=== PATIENT | male | born 1995 | race Caucasian/White ===

== ENCOUNTER 2022-08-02 12:22 | Inpatient (IN) | payer OTHER, MEDICAID, SELFPAY ==
--- NOTE | ~2022-08-02 | CT_ITS ---
EXAMINATION: CT HEAD WITHOUT CONTRAST CLINICAL INFORMATION: Possible head injury, seizure. COMPARISON: None TECHNIQUE: Contiguous axial imaging was performed from the skull base to vertex without intravenous administration of contrast. Coronal and sagittal reformatted images were obtained. This CT examination was performed using dose optimization techniques as appropriate, variously including the following: *Automated exposure control *Adjustment of mA and/or kV according to patient size (this includes techniques or standardized protocols for targeted exams where dose is matched to indication/reason for exam; i.e. extremities or head) *Use of iterative reconstruction technique DLP: 783 mGy-cm FINDINGS: The cortical sulci are normal. The lateral ventricles are symmetrical. The third and fourth ventricles are in their normal midline position. The basilar and prepontine cisterns are unremarkable. There is no acute intra or extracerebral abnormality. There is no mass effect or midline shift. Sections through the bony calvarium are unremarkable. The paranasal sinuses moderate right and mild left mucosal thickening is seen in the visualized maxillary sinuses. Mild ethmoid sinus mucosal thickening bilaterally. Right caesar bullosa. The bony orbits and orbital contents are unremarkable. CT/CT head/brain wo IV con IMPRESSION: 1. No acute intracranial pathology. 2. Paranasal sinus inflammatory changes.
--- NOTE | ~2022-08-02 | CT_ITS ---
EXAMINATION: CT ABDOMEN AND PELVIS WITHOUT CONTRAST CLINICAL INFORMATION: Distended abdomen. COMPARISON: None TECHNIQUE: Multidetector volumetric imaging was performed from the superior aspect of the liver through the pubic symphysis. Sagittal and coronal reformatted images were obtained on the technologist's workstation. This CT examination was performed using dose optimization techniques as appropriate, variously including the following: *Automated exposure control *Adjustment of mA and/or kV according to patient size (this includes techniques or standardized protocols for targeted exams where dose is matched to indication/reason for exam; i.e. extremities or head) *Use of iterative reconstruction technique DLP: 1497 mGy-cm FINDINGS: LUNG BASES: Bibasilar dependent airspace disease. No gross effusion, although evaluation is somewhat limited by beam hardening artifact. Mild cardiomegaly. Tip of endotracheal tube within the trachea, approximately 1.1 cm above the barbie. LIVER, GALLBLADDER, AND BILIARY TREE: Hepatomegaly measuring up to approximately 23 cm in craniocaudal dimension. Diffusely heterogeneous hepatic parenchymal density. No direct visualization of portal venous or hepatic venous occlusion. No biliary ductal dilatation is appreciated. Unremarkable appearance of the gallbladder. PANCREAS: Mild induration of fat about the uncinate process and head of the pancreas. No discrete collection identified. SPLEEN: Splenomegaly measuring up to approximately 16.5 cm in sagittal dimension. No focal splenic lesion identified. ADRENAL GLANDS: Unremarkable KIDNEYS AND URETERS: The kidneys appear unremarkable in size, shape, and attenuation. No hydronephrosis, hydroureter, or calculi seen. BLADDER: Tip of catheter within urinary bladder which is poorly distended, therefore suboptimally evaluated. GASTROINTESTINAL TRACT: Tip of feeding tube in the second portion of duodenum. Question subtle submucosal infiltration of fat involving the ascending colon, raising the possibility of burnt out colitis. No diverticulosis. Normal-appearing distal ileum and vermiform appendix. Peroneal cavity: No evidence of ascites. ABDOMINAL WALL: No significant hernia is appreciated. LYMPH NODES: No evidence of adenopathy by size criteria. VASCULAR: Unremarkable PELVIC VISCERA: Unremarkable OSSEOUS STRUCTURES: Unremarkable CT/CT abdomen pelvis wo IV con IMPRESSION: No evidence of ascites or intestinal obstruction. Mild induration of fat about the uncinate process and head of the pancreas, suspicious for acute pancreatitis. No discrete collection identified. Bibasilar dependent airspace disease suggesting infiltrates and/or atelectasis. Hepatosplenomegaly. Diffusely heterogeneous hepatic parenchymal density, nonspecific. Differential diagnosis includes, but isn't limited to, hepatitis. Recommend clinical correlation. If further imaging is clinically desired, MRI may be of use. Additional findings, as above.
--- NOTE | ~2022-08-02 | XR_ITS ---
EXAMINATION: XR CHEST CLINICAL INFORMATION: Hypoxia COMPARISON: August 04, 2022 TECHNIQUE: AP portable view of the chest was obtained. FINDINGS: Endotracheal tube tip lies approximately 1.5 cm above the barbie. Enteric catheter seen traversing through the stomach. Temperature probe in place. The cardiopericardial silhouette is upper limits of normal in size. No evidence of pulmonary edema. No pneumothorax or pleural effusion is appreciated. There are small lung volumes. There appears to be an increase in retrocardiac left lower lobe disease from previous study. XR/XR chest 1V IMPRESSION: Endotracheal tube tip somewhat low approximately 1.5 cm above the barbie. Increase in left lower lobe retrocardiac disease. This critical result was discussed with Dr. Jurado at 8:30 AM on August 05, 2022 and it was ascertained that the content and urgency of the report was understood at the time of direct communication.
--- NOTE | ~2022-08-02 | XR_ITS ---
EXAMINATION: XR CHEST CLINICAL INFORMATION: Line placement COMPARISON: None TECHNIQUE: AP portable view of the chest was obtained. FINDINGS: Endotracheal tube tip lies approximately 2 cm above the barbie. Enteric catheter seen traversing to the stomach. No pneumothorax or pleural effusion identified. The cardiopericardial silhouette is mildly enlarged. No evidence of pulmonary edema. There appears to be some left base atelectasis within the lingula. Lung volumes are small. XR/XR chest 1V IMPRESSION: Support tubes and catheters in place. Cardiomegaly without pulmonary edema.
--- NOTE | ~2022-08-02 | US_ITS ---
EXAMINATION: US ABDOMEN COMPLETE CLINICAL INFORMATION: EtOH hepatitis. COMPARISON: None TECHNIQUE: Real-time imaging of the abdominal viscera. FINDINGS: PANCREAS: Visualized portions unremarkable. ABDOMINAL AORTA: Visualized portions unremarkable. INFERIOR VENA CAVA: Visualized portions unremarkable. LIVER: Diffuse increased hepatic echotexture with heterogeneity and mild surface nodularity. No focal abnormality. Main portal vein is patent. GALLBLADDER: Small gallstone measuring 0.8 cm. No mural thickening or pericholecystic fluid. COMMON BILE DUCT: Normal in caliber measuring 0.6 cm in diameter. RIGHT KIDNEY: 10.8 cm. Unremarkable. LEFT KIDNEY: 12.2 cm. Unremarkable. SPLEEN: 13.6 cm without focal abnormality. FREE FLUID: None. US/US abdomen complete IMPRESSION: Hepatic steatosis and possible cirrhosis without focal abnormality. Cholelithiasis without evidence for acute cholecystitis.
[2022-08-02 12:31] VITALS: PULSE 130; O2SAT 93
[2022-08-02 13:07] VITALS: BP 142/90; PULSE 118; RESP 18; TEMP 37; O2SAT 92; BMI 34.0
--- NOTE | 2022-08-02 13:54 | ECG_ITS ---
Test Reason : SEIZURE Blood Pressure : / mmHG Vent. Rate : 105 BPM Atrial Rate : 105 BPM P-R Int : 146 ms QRS Dur : 094 ms QT Int : 340 ms P-R-T Axes : 067 072 016 degrees QTc Int : 449 ms Sinus tachycardia Otherwise normal ECG No previous ECGs available Referred By: Basilio Gonzalez Electronically Signed By:Mark Mckeon
--- NOTE | 2022-08-02 14:02 | ED.SEIZURE ---
HPI - Seizure General Chief Complaint: Seizure Stated Complaint: ETOH WITHDRAL,SZ, POST ICTAL PER EMS Time Seen by Provider: 08/02/22 13:41 Source: patient Mode of arrival: wheelchair Limitations: no limitations History of Present Illness HPI Narrative: 26-year-old male with history of alcohol abuse currently at [facility] presents with what appears to be an alcohol withdrawal seizure. Patient's last drink was approximately 3 days ago. He drinks about 21 nips per day typically. He denies any other drug abuse. He has been on Librium at all to this to. Today he suffered a seizure. He is not sure if he hit his head. He did bite his tongue. Did not lose control of bowel or bladder. She does have a history of a seizure before that was alcohol related. He denies any chest pain, palpitations, lightheadedness, nausea, vomiting. Does report being tremulous and anxious. He has had no fevers. Denies headache neck pain neck stiffness. Denies any focal neurologic deficit Related Data Home Medications Medication Instructions Recorded Confirmed amlodipine 2.5 mg tablet 2.5 mg PO DAILY 08/02/22 folic acid 1 mg tablet 1 mg PO DAILY 08/02/22 08/02/22 hydroxyzine HCl 25 mg tablet 25 mg PO TID PRN Anxiety 08/02/22 08/02/22 lisinopril 10 mg tablet 10 mg PO DAILY 08/02/22 08/02/22 melatonin 3 mg tablet 3 mg PO BEDTIME 08/02/22 08/02/22 metoprolol succinate 25 mg 25 mg PO DAILY 08/02/22 08/02/22 tablet,extended release 24 hr naltrexone microspheres 380 mg 380 mg IM Q28D 08/02/22 intramuscular suspension,extended release (Vivitrol) quetiapine 50 mg tablet 50 mg PO BEDTIME 08/02/22 08/02/22 thiamine HCl (vitamin B1) 100 mg 100 mg PO DAILY 08/02/22 08/02/22 tablet trazodone 50 mg tablet 50 mg PO BEDTIME 08/02/22 08/02/22 Allergies Allergy/AdvReac Type Severity Reaction Status Date / Time No Known Allergies Allergy Verified 08/02/22 13:49 Review of Systems Review of Systems: CONSTITUTIONAL: Denies weight loss, fever and chills. HEENT: Denies changes in vision and hearing. RESPIRATORY: Denies SOB and cough. CV: Denies palpitations no CP. GI: Denies abdominal pain, nausea, vomiting and diarrhea. : Denies dysuria and urinary frequency. MSK: Denies myalgia and joint pain. SKIN: Denies rash and pruritus. NEUROLOGICAL: Denies headache and syncope. Positive seizure, tremors PSYCHIATRIC: Denies recent changes in mood. Positive anxiety and depression. All other ROS are negative unless in HPI PMFSH Past Medical History Medical History (Updated 08/02/22 @ 16:04 by Cory Feliciano MD) Alcohol abuse HTN (hypertension) Obesity Social History Social History (Updated 08/02/22 @ 16:04 by Cory Feliciano MD) Alcohol intake: current Patient Tobacco Use Status: Never used Tobacco Use of substances other than those prescribed or required for medical reasons: No Advance Directives: No Advance Directives Information Provided: No Physical Exam Vital Signs: Vital Signs: Last Vital Signs Temp 98.6 F 08/02/22 13:07 Pulse 118 H 08/02/22 13:07 Resp 18 08/02/22 13:07 BP 142/90 H 08/02/22 13:07 Pulse Ox 92 08/02/22 13:07 O2 Del Method 08/02/22 13:07 BMI result Body Mass Index 34.0 GEN: Well developed, no acute distress, alert, oriented HEENT: Normocephalic, atraumatic, normal external ears, nose appears normal, no oropharyngeal edema or exudates Eyes: Normal to appearance Neck: Supple, no lymphadenopathy Respiratory: Talks in complete sentences, no respiratory distress, clear to auscultation bilaterally Cardiovascular: Regular rate and rhythm, no murmurs rubs or gallops, tachycardic Abdomen: Soft, nontender, nondistended, no guarding, no rebound Back: No CVA tenderness Extremities: No clubbing cyanosis or edema Neurologic: No focal neurologic deficits, cranial nerves 2-12 intact, strength is 5/5 bilaterally, tremulousness Skin: No rash scattered abrasions Course Course Course Narrative: 26-year-old male with history of alcohol abuse per presents with a likely alcohol withdrawal seizure. Concurrently, patient is in no acute distress but tremulous. He is tachycardic. He is nonfocal. Has scattered abrasions in cuts that are superficial on his extremities. He does report that his tetanus vaccination is in fact up-to-date. Denies any headache, nausea or focal neurologic deficit. Examination other than the tremulousness and tachycardia is unremarkable. Patient will have EKG, laboratory analysis, Ativan 2 mg IV to deal with alcohol withdrawal as well as for seizure prophylaxis. Patient will ultimately require hospitalization for alcohol withdrawal that is severe in nature. Medications Administered Discontinued Medications Generic Name Dose Route Start Last Admin Trade Name Ritesh PRN Reason Stop Dose Admin Folic Acid 1 mg 08/02/22 14:53 08/02/22 15:53 Folic Acid 1 Mg Tablet PO 08/02/22 14:54 1 mg ONCE ONE Administration Sodium Chloride 1,000 mls @ 999 mls/hr 08/02/22 14:00 08/02/22 15:53 Ns IV 08/02/22 15:00 999 mls/hr .Q1H1M CARLA Administration Lorazepam 2 mg 08/02/22 13:49 08/02/22 15:52 Lorazepam 2 Mg/Ml Vial IVPUSH 08/02/22 13:50 2 mg ONCE ONE Administration Multivitamins/Vitamin C 1 tab 08/02/22 14:53 08/02/22 15:52 Multivitamin Tablet PO 08/02/22 14:54 1 tab ONCE ONE Administration Thiamine HCl 100 mg 08/02/22 14:53 08/02/22 15:52 Thiamine Hcl 100 Mg Tablet PO 08/02/22 14:54 100 mg ONCE ONE Administration Medical Decision Making Medical Decision Making MDM Narrative: 26-year-old male with history of alcohol abuse per presents with a likely alcohol withdrawal seizure. Concurrently, patient is in no acute distress but tremulous. He is tachycardic. He is nonfocal. Has scattered abrasions in cuts that are superficial on his extremities. He does report that his tetanus vaccination is in fact up-to-date. Denies any headache, nausea or focal neurologic deficit. Examination other than the tremulousness and tachycardia is unremarkable. Patient will have EKG, laboratory analysis, Ativan 2 mg IV to deal with alcohol withdrawal as well as for seizure prophylaxis. Patient will ultimately require hospitalization for alcohol withdrawal that is severe in nature. Differential Diagnosis Differential Diagnoses: The differential diagnosis associated with the presentation includes (Alcohol withdrawal seizure, hypoglycemia, hyponatremia, underlying seizure disorder, mass effect, intracranial disorder) Admission/Observation Consideration of admission/observation: Escalation of care including admission/observation considered Lab Data MDM Lab Attestation statement: I reviewed the patient's lab results. 08/02/22 14:11 Labs: Lab Results 08/02/22 08/02/22 08/02/22 Range/Units 14:11 14:11 14:21 WBC 8.1 (4.8-10.8) X10*3/uL RBC 4.62 (4.60-5.80) X10*6/uL Hgb 15.0 (14.0-18.0) g/dl Hct 42.7 (42.0-52.0) % MCV 92.4 (80.0-98.0) fL MCH 32.5 (27.0-33.0) pg MCHC 35.1 (31.0-36.0) g/dl RDW 13.5 (11.0-16.0) % Plt Count 79 L (160-400) X10*3/uL MPV 10.6 (9.4-12.4) fL Immature Gran % (Auto) 0.4 (0.0-0.4) % Neut % (Auto) 81.8 H (45-73) % Lymph % (Auto) 7.7 L (20-40) % [place] % (Auto) 9.2 (2-11) % Eos % (Auto) 0.2 (0-4) % Baso % (Auto) 0.7 (0-2) % Lymph # (Auto) 0.6 L (1.2-4.9) X10*3/uL [place] # (Auto) 0.8 (0.1-1.2) X10*3/uL Eos # (Auto) 0.0 (0.0-0.4) X10*3/uL Baso # (Auto) 0.1 (0.0-0.2) X10*3/uL Abs Immat Gran (auto) 0.03 (0.00-0.03) X10*3/uL Absolute Neuts (auto) 6.6 (2.0-8.3) x10*3/uL Absolute Nucleated RBC 0.000 (0.0-0.012) X10*3/uL Nucleated RBC % (auto) 0.0 (0.0-0.2) /100WBC Sodium 138 (135-145) mmol/L Potassium 4.1 (3.3-5.1) mmol/L Chloride 100 (96-108) mmol/L Carbon Dioxide 24 (22-29) mmol/L Anion Gap 18 (12-20) BUN 18 H (9-16) mg/dL Creatinine 0.65 (0.5-1.4) mg/dL Estim Creat Clear Calc 203.1 Estimated GFR > 60 Random Glucose 120 H (60-115) mg/dL Lactic Acid 1.4 (0.5-2.0) mmol/L Calcium 8.9 (8.4-10.2) mg/dL Total Bilirubin 4.2 H (0.0-1.0) mg/dL Direct Bilirubin 2.1 H (0.0-0.5) mg/dL AST 171 H (5-37) U/L ALT 105 H (0-40) U/L Alkaline Phosphatase 207 H (39-117) U/L Total Protein 7.0 (6.5-8.0) g/dL Albumin 4.1 (3.5-5.0) g/dL Vitamin B12 316 (200-900) pg/mL Folate 10.5 (> or = 4.0) ng/mL Ethyl Alcohol < 10 mg/dL COVID-19 (MICHAEL) (Negative) COVID-19 Clin Com 08/02/22 Range/Units 14:21 WBC (4.8-10.8) X10*3/uL RBC (4.60-5.80) X10*6/uL Hgb (14.0-18.0) g/dl Hct (42.0-52.0) % MCV (80.0-98.0) fL MCH (27.0-33.0) pg MCHC (31.0-36.0) g/dl RDW (11.0-16.0) % Plt Count (160-400) X10*3/uL MPV (9.4-12.4) fL Immature Gran % (Auto) (0.0-0.4) % Neut % (Auto) (45-73) % Lymph % (Auto) (20-40) % [place] % (Auto) (2-11) % Eos % (Auto) (0-4) % Baso % (Auto) (0-2) % Lymph # (Auto) (1.2-4.9) X10*3/uL [place] # (Auto) (0.1-1.2) X10*3/uL Eos # (Auto) (0.0-0.4) X10*3/uL Baso # (Auto) (0.0-0.2) X10*3/uL Abs Immat Gran (auto) (0.00-0.03) X10*3/uL Absolute Neuts (auto) (2.0-8.3) x10*3/uL Absolute Nucleated RBC (0.0-0.012) X10*3/uL Nucleated RBC % (auto) (0.0-0.2) /100WBC Sodium (135-145) mmol/L Potassium (3.3-5.1) mmol/L Chloride (96-108) mmol/L Carbon Dioxide (22-29) mmol/L Anion Gap (12-20) BUN (9-16) mg/dL Creatinine (0.5-1.4) mg/dL Estim Creat Clear Calc Estimated GFR Random Glucose (60-115) mg/dL Lactic Acid (0.5-2.0) mmol/L Calcium (8.4-10.2) mg/dL Total Bilirubin (0.0-1.0) mg/dL Direct Bilirubin (0.0-0.5) mg/dL AST (5-37) U/L ALT (0-40) U/L Alkaline Phosphatase (39-117) U/L Total Protein (6.5-8.0) g/dL Albumin (3.5-5.0) g/dL Vitamin B12 (200-900) pg/mL Folate (> or = 4.0) ng/mL Ethyl Alcohol mg/dL COVID-19 (MICHAEL) Negative (Negative) COVID-19 Clin Com See Note Independent Interpretation I performed an independent interpretation of an: EKG (Sinus tachycardia heart rate 105, otherwise normal intervals, no acute ST elevations or depressions) and CT Scan (NAD) Radiology Impression Discussion of test interpretation with radiology: I have reviewed the radiologist's reading. (IMPRESSION: 1. No acute intracranial pathology. 2. Paranasal sinus inflammatory changes. Dictated By:Gio Herndon MDSigned By:<Electronically signed by Gio Herndon MD in [place]>08/02/22 [id number]) External Record Review No records available Tests considered The following testing was considered but not selected: MRI, chest x-ray Prescription Management I considered prescription management with: Other (Seizure medications) Chronic Conditions Patient?s care impacted by: Other (Alcohol abuse) Discharge Plan Discharge Clinical Impression: Alcohol abuse, Alcohol withdrawal seizure Prescriptions: No Action amlodipine 2.5 mg tablet 2.5 mg PO DAILY melatonin 3 mg tablet 3 mg PO BEDTIME lisinopril 10 mg tablet 10 mg PO DAILY hydroxyzine HCl 25 mg tablet 25 mg PO TID PRN (Reason: Anxiety) metoprolol succinate 25 mg tablet extended release 24 hr 25 mg PO DAILY quetiapine 50 mg tablet 50 mg PO BEDTIME Vivitrol 380 mg suspension,extended rel recon 380 mg IM Q28D trazodone 50 mg tablet 50 mg PO BEDTIME thiamine HCl (vitamin B1) 100 mg Tablet 100 mg PO DAILY folic acid 1 mg tablet 1 mg PO DAILY
[2022-08-02 14:28] LABS: Lactic Acid 1.4 mmol/L (0.5-2.0)
[2022-08-02 14:28] LABS: Imm Gran Abs Auto 0.03 X10*3/uL (0.00-0.03); Imm Gran Pct Auto 0.4 % (0.0-0.4); PLT CLUMP 1; Red Cell Distribution Width 13.5 % (11.0-16.0); SCAN SMEAR FLAG 1
[2022-08-02 14:30] LABS: Basophils Absolute Auto 0.1 X10*3/uL (0.0-0.2); Basophils Percent Auto 0.7 % (0-2); Eosinophils Percent Auto 0.2 % (0-4); Hematocrit 42.7 % (42.0-52.0); Lymphocytes Absolute Auto 0.6 X10*3/uL (1.2-4.9); Lymphocytes Percent Auto 7.7 % (20-40); Mean Corpuscular HGB Conc 35.1 g/dl (31.0-36.0); Mean Corpuscular Hemoglobin 32.5 pg (27.0-33.0); Mean Corpuscular Volume 92.4 fL (80.0-98.0); Mean Platelet Volume 10.6 fL (9.4-12.4); Monocytes Absolute Auto 0.8 X10*3/uL (0.1-1.2); Monocytes Percent Auto 9.2 % (2-11); Neutrophils Absolute Auto 6.6 x10*3/uL (2.0-8.3); Neutrophils Percent Auto 81.8 % (45-73); Red Blood Count 4.62 X10*6/uL (4.60-5.80)
[2022-08-02 14:33] LABS: MANUAL DIFF FLAG NO; Platelet Count 79 X10*3/uL (160-400); White Blood Count 8.1 X10*3/uL (4.8-10.8)
[2022-08-02 14:43] LABS: Alanine Aminotransferase 105 U/L (0-40); Albumin Level 4.1 g/dL (3.5-5.0); Alkaline Phosphatase 207 U/L (39-117); Anion Gap 18 (12-20); Aspartate Amino Transferase 171 U/L (5-37); Bilirubin Direct 2.1 mg/dL (0.0-0.5); Bilirubin Total 4.2 mg/dL (0.0-1.0); Blood Urea Nitrogen 18 mg/dL (9-16); Calcium 8.9 mg/dL (8.4-10.2); Carbon Dioxide 24 mmol/L (22-29); Chloride 100 mmol/L (96-108); Creatinine Clr Calc Pharmacy 203.1; Estimated Glomerular Filt Rate > 60; Ethanol < 10 mg/dL; Glucose Random 120 mg/dL (60-115); Potassium 4.1 mmol/L (3.3-5.1); Sodium 138 mmol/L (135-145)
[2022-08-02 14:45] LABS: COVID-19 Test Negative (Negative); IDNOW Serial# BCCEAD1C
[2022-08-02 15:13] LABS: Folate 10.5 ng/mL (> or = 4.0); Vitamin B12 316 pg/mL (200-900)
--- NOTE | 2022-08-02 15:40 | PHA.MEDREC ---
Pharmacy Consult ? Medication Reconciliation Pharmacy has completed the medication reconciliation. Called and spoke to Nishant at [facility] who faxed medication list
[2022-08-02] MEDS: LORazepam 2 MG/ML VIAL IVPUSH (15:52)
[2022-08-02] MEDS: Multivitamin TABLET 1 TAB PO (15:52)
[2022-08-02] MEDS: Thiamine HCL 100 MG TABLET PO (15:52)
[2022-08-02] MEDS: 0.9 % Sodium Chloride 1,000 ML 999 ML IV (15:53)
[2022-08-02] MEDS: Folic Acid 1 MG TABLET PO (15:53)
--- NOTE | 2022-08-02 16:00 | P.HPHOSP_ITS ---
History of Present Illness Date of Service: 08/02/22 Chief Complaint: seizure 26M PMH obesity, HTN, etoh dependence with history of severe withdrawal requiring intubation, presented with witnessed seizure. Patient reports drinking 30 nips of whiskey per day. He reports his last drink was 3 days prior to presentation. Patient was at [facility] and had witnessed seizure. In ED patient noted to have signs of acute hepatitis with total bilirubin of 4.2. Review of Systems Review of Systems: Yes all other systems are reviewed and are negative [facility] Medical History (Updated 08/02/22 @ 16:04 by Cory Feliciano MD) Alcohol abuse HTN (hypertension) Obesity Social History (Updated 08/02/22 @ 16:04 by Cory Feliciano MD) Alcohol intake: current Patient Tobacco Use Status: Never used Tobacco Use of substances other than those prescribed or required for medical reasons: No Advance Directives: No Advance Directives Information Provided: No Meds Allergies Allergy/AdvReac Type Severity Reaction Status Date / Time No Known Allergies Allergy Verified 08/02/22 13:49 Active Medications: Current Medications Folic Acid (Folic Acid 1 Mg Tablet) 1 mg PO DAILY CARLA Hydroxyzine HCl (Hydroxyzine Hcl 25 Mg Tablet) 25 mg PO TID PRN PRN Reason: Anxiety Lactated Ringer's (Lr) 1,000 mls @ 80 mls/hr IVCONT .[id number] CARLA Lisinopril (Lisinopril 10 Mg Tablet) 10 mg PO DAILY CARLA; Protocol Metoprolol Succinate (Metoprolol Succinate Er 25 Mg Tab.Er.24h) 25 mg PO DAILY CARLA; Protocol Pharmacy Consult (Consult Rx Perform Med Rec) 1 each MISCELLANE ONCE PRN PRN Reason: Consult order Pharmacy Consult (Consult Rx Perform Med Rec) 1 each MISCELLANE ONCE PRN PRN Reason: Consult order Pharmacy Consult (Consult Rx Etoh Phenob Im/Po) 1 each MISCELLANE ONCE PRN; Protocol PRN Reason: Consult order Quetiapine Fumarate (Quetiapine Fumarate 50 Mg Tablet) 50 mg PO BEDTIME CARLA Thiamine HCl (Thiamine Hcl 100 Mg Tablet) 100 mg PO DAILY CARLA Trazodone HCl (Trazodone Hcl 50 Mg Tablet) 50 mg PO BEDTIME CARLA Home Medications Medication Instructions Recorded Confirmed Last Taken Type amlodipine 2.5 mg tablet 2.5 mg PO DAILY 08/02/22 Unknown History folic acid 1 mg tablet 1 mg PO DAILY 08/02/22 08/02/22 Unknown History hydroxyzine HCl 25 mg tablet 25 mg PO TID PRN Anxiety 08/02/22 08/02/22 Unknown History lisinopril 10 mg tablet 10 mg PO DAILY 08/02/22 08/02/22 Unknown History melatonin 3 mg tablet 3 mg PO BEDTIME 08/02/22 08/02/22 Unknown History metoprolol succinate 25 mg 25 mg PO DAILY 08/02/22 08/02/22 Unknown History tablet,extended release 24 hr naltrexone microspheres 380 mg 380 mg IM Q28D 08/02/22 Unknown History intramuscular suspension,extended release (Vivitrol) quetiapine 50 mg tablet 50 mg PO BEDTIME 08/02/22 08/02/22 Unknown History thiamine HCl (vitamin B1) 100 mg 100 mg PO DAILY 08/02/22 08/02/22 Unknown History tablet trazodone 50 mg tablet 50 mg PO BEDTIME 08/02/22 08/02/22 Unknown History Physical Exam Vital Signs and Narrative: Vital Signs: Last Vital Signs Temp 98.6 F 08/02/22 13:07 Pulse 118 H 08/02/22 13:07 Resp 18 08/02/22 13:07 BP 142/90 H 08/02/22 13:07 Pulse Ox 92 08/02/22 13:07 O2 Del Method 08/02/22 13:07 BMI result Body Mass Index 34.0 General: AO X 3, dissheveled, tremulous Resp: CTA bilateral, no accessory muscles used CVS: S1,S2,RRR GI: soft, non tender, non distended Results Labs 08/02/22 14:21 08/02/22 14:11 Labs: Laboratory Results - last 24 hr 08/02/22 08/02/22 08/02/22 14:11 14:11 14:21 MCV 92.4 MCH 32.5 MCHC 35.1 RDW 13.5 Plt Count 79 L MPV 10.6 Immature Gran % (Auto) 0.4 Neut % (Auto) 81.8 H Lymph % (Auto) 7.7 L [place] % (Auto) 9.2 Eos % (Auto) 0.2 Baso % (Auto) 0.7 Lymph # (Auto) 0.6 L [place] # (Auto) 0.8 Eos # (Auto) 0.0 Baso # (Auto) 0.1 Abs Immat Gran (auto) 0.03 Absolute Neuts (auto) 6.6 Absolute Nucleated RBC 0.000 Nucleated RBC % (auto) 0.0 Anion Gap 18 Estim Creat Clear Calc 203.1 Estimated GFR > 60 Random Glucose 120 H Lactic Acid 1.4 Calcium 8.9 Total Bilirubin 4.2 H Direct Bilirubin 2.1 H AST 171 H ALT 105 H Alkaline Phosphatase 207 H Total Protein 7.0 Albumin 4.1 Vitamin B12 316 Folate 10.5 Ethyl Alcohol < 10 COVID-19 (MICHAEL) COVID-19 Clin Com 08/02/22 14:21 MCV MCH MCHC RDW Plt Count MPV Immature Gran % (Auto) Neut % (Auto) Lymph % (Auto) [place] % (Auto) Eos % (Auto) Baso % (Auto) Lymph # (Auto) [place] # (Auto) Eos # (Auto) Baso # (Auto) Abs Immat Gran (auto) Absolute Neuts (auto) Absolute Nucleated RBC Nucleated RBC % (auto) Anion Gap Estim Creat Clear Calc Estimated GFR Random Glucose Lactic Acid Calcium Total Bilirubin Direct Bilirubin AST ALT Alkaline Phosphatase Total Protein Albumin Vitamin B12 Folate Ethyl Alcohol COVID-19 (MICHAEL) Negative COVID-19 Clin Com See Note Imaging Radiologist's Impressions: Impressions Head CT 08/02/22 14:33 IMPRESSION: 1. No acute intracranial pathology. 2. Paranasal sinus inflammatory changes. Assessment and Plan (1) Alcohol abuse: Status: Acute (2) Alcohol withdrawal seizure: Status: Acute Plan 26M pmh etoh dependence, htn, obesity presented with seizure Alcohol dependence with withdrawal complicated by alcohol withdrawal seizure and acute alcoholic hepatitis Phenobarbital CIWA Monitor LFTs Check ultrasound abdomen Hypertension Lisinopril, metoprolol Obesity Weight loss recommended DVT prophylaxis-mechanical due to coagulopathy from liver disease Full code Patient with severe withdrawal causing seizure and history of life-threatening withdrawal, therefore, expected to require at least 2 midnights inpatient. Time Spent With Patient Time: Total time managing care of this patient today ____ minutes. Quality Stroke Does the patient have a stroke diagnosis?: No VTE Prior VTE?: No VTE Risk Level:: Medical - moderate - high VTE Device Contraindication: N/A - Device Ordered VTE Drug Contraindication: Treatment Not Tolerated
[2022-08-02] MEDS: PHENobarbitaL sodium 130 MG/ML IM ONCE 283.4 MG IM (17:23)
[2022-08-02 17:29] LABS: INTERNATIONAL NORM RATIO 1.2 (0.9-1.1); Prothrombin Time 13.3 SEC (10.0-13.1)
[2022-08-02 17:49] LABS: Appearance Urine Cloudy; Color Urine Dark Yellow; Glucose Urine UA Negative (Negative); Leukocyte Esterase Urine Trace (Negative); Nitrite Urine Positive (Negative); PH 6.5 (5.0-9.0); Specific Gravity - Urine >= 1.030 (1.005-1.025); UMIC TRIGGER UACC YES; Urine Blood Negative (Negative); Urine Ketones 15 mg/dL (Negative); Urine Protein 100 (2+) mg/dL (Neg-Trace)
[2022-08-02 17:53] LABS: Amphetamine Screen Urine Not Detected (Not Detect); Barbiturates, Urine Not Detected (Not Detect); Benzodiazepines Screen Urine POSITIVE (Not Detect); Cannabinoid Screen Urine Not Detected (Not Detect); Cocaine Screen Urine Not Detected (Not Detect); Fentanyl, urine Not Detected (Not Detect); Opiate Screen Urine Not Detected (Not Detect); Phencyclidine Screen Urine POSITIVE (Not Detect)
[2022-08-02 17:57] VITALS: BP 144/93; PULSE 102; RESP 16; TEMP 37.2; O2SAT 93
--- NOTE | 2022-08-02 17:58 | MHC.CM.PN ---
Met with admitted patient with bed assignment 462. A&O x3. Very tremulous, sweaty. RN aware. Was at [facility] for detox. ETOH seizure. Pt is not interested in further ETOH treatment at discharge. Needs addiction services consult prior to discharge. Lives with mother. No DME/services. PCP Kaity August in [place]. Pt lives in [place]. [employer] x3. HCP reviewed, completed and signed. Copies given. Uploaded into [facility] [employer] and [facility] [employer]. HCP/mother Marcella Mejia ([phone]). D/C plan: Home without services. Pt to arrange transport home. CM will follow for discharge needs.
[2022-08-02] MEDS: Lactated Ringers 1,000 ML 80 ML IVCONT (18:20)
[2022-08-02] MEDS: 0.9 % Sodium Chloride Flush 3 ML SYRINGE IVFLUSH (18:20)
[2022-08-02 18:28] LABS: Hyaline Casts Urine 0-2 /LPF (0-2); RBC Urine 0-2 /HPF (0-2); Squamous Epithelial Cell Urine 0-2 /HPF (0-2); UACC Culture Trigger YES; WBC Urine 0-5 /HPF (0-5)
[2022-08-02 18:29] LABS: Bacteria Urine 1+ (None Seen)
[2022-08-02] MEDS: PHENobarbitaL sodium 130 MG/ML VIAL IM Q3Hx2 213.2 MG IM ×2 (19:17→22:58)
[2022-08-02 20:00] VITALS: BP 141/84; PULSE 87; RESP 20; TEMP 37.4; O2SAT 97
[2022-08-02] MEDS: traZODone HCL 50 MG TABLET PO (21:53)
[2022-08-02] MEDS: QUEtiapine Fumarate 50 MG TABLET PO (21:53)
[2022-08-03] VITALS: BP 134/73; PULSE 100; RESP 18; TEMP 37; O2SAT 97
[2022-08-03 03:46] VITALS: BP 135/68; PULSE 76; RESP 20; TEMP 36.6; O2SAT 98
[2022-08-03] MEDS: Lactated Ringers 1,000 ML 80 ML IVCONT ×2 (05:37→18:28)
[2022-08-03 06:56] LABS: Hematocrit 41.8 % (42.0-52.0); Hemoglobin 14.5 g/dl (14.0-18.0); Mean Corpuscular HGB Conc 34.7 g/dl (31.0-36.0); Mean Corpuscular Hemoglobin 32.5 pg (27.0-33.0); Mean Corpuscular Volume 93.7 fL (80.0-98.0); Mean Platelet Volume 11.4 fL (9.4-12.4); Red Blood Count 4.46 X10*6/uL (4.60-5.80); Red Cell Distribution Width 13.3 % (11.0-16.0); White Blood Count 6.9 X10*3/uL (4.8-10.8)
[2022-08-03 06:57] LABS: Platelet Count 76 X10*3/uL (160-400)
[2022-08-03 06:58] LABS: INTERNATIONAL NORM RATIO 1.2 (0.9-1.1); Prothrombin Time 13.3 SEC (10.0-13.1)
[2022-08-03 07:10] LABS: Alanine Aminotransferase 99 U/L (0-40); Albumin Level 3.7 g/dL (3.5-5.0); Alkaline Phosphatase 206 U/L (39-117); Anion Gap 19 (12-20); Aspartate Amino Transferase 201 U/L (5-37); Bilirubin Direct 2.7 mg/dL (0.0-0.5); Bilirubin Total 4.7 mg/dL (0.0-1.0); Blood Urea Nitrogen 14 mg/dL (9-16); Calcium 8.6 mg/dL (8.4-10.2); Carbon Dioxide 24 mmol/L (22-29); Chloride 98 mmol/L (96-108); Creatinine Clr Calc Pharmacy 197.1; Estimated Glomerular Filt Rate > 60; Glucose Fasting 91 mg/dL (60-99); Potassium 3.7 mmol/L (3.3-5.1); Sodium 137 mmol/L (135-145); Total Protein 6.4 g/dL (6.5-8.0)
[2022-08-03 07:51] VITALS: BP 130/70; PULSE 92; RESP 16; TEMP 36.8; O2SAT 97
[2022-08-03] MEDS: Thiamine HCL 100 MG TABLET PO (08:57)
[2022-08-03] MEDS: PHENobarbitaL 15 MG TABLET 45 MG PO ×2 (08:57→20:13)
[2022-08-03] MEDS: Metoprolol Succinate ER 25 MG TAB.ER.24H PO (08:57)
[2022-08-03] MEDS: Folic Acid 1 MG TABLET PO (08:57)
[2022-08-03] MEDS: lisinopriL 10 MG TABLET PO (08:58)
[2022-08-03] MEDS: hydrOXYzine HCL 25 MG TABLET PO ×2 (09:04→21:43)
--- NOTE | 2022-08-03 09:22 | HO.PM.IMPN ---
Subjective Subjective Date of Service: 08/03/22 Interval History: less tremulous no N/V on Vivitrol Review of Systems Review of Systems: Yes all other systems are reviewed and are negative Physical Exam Vital Signs: Vital Signs: Last Vital Signs Temp 98.2 F 08/03/22 07:51 Pulse 92 08/03/22 07:51 Resp 16 08/03/22 07:51 BP 130/70 08/03/22 07:51 Pulse Ox 97 08/03/22 07:51 O2 Del Method 08/03/22 07:51 BMI result Body Mass Index 34.0 Const: Other: Gen: mildly tremulous HEENT: sclera anicteric, moist mucus membranes Neck: supple Lungs: clear to auscultation bilaterally Heart: regular rate and rhythm, no murmurs Abd: soft, non-tender, non-distended, obese Ext: no edema Skin: warm/well-perfused Neuro: alert and oriented x3, no focal findings Psych: appropriate affect Objective Data Active Medications Folic Acid (Folic Acid 1 Mg Tablet) 1 mg PO DAILY [facility] Last Admin: 08/03/22 08:57 Dose: 1 mg Documented By: KENZIE Hydroxyzine HCl (Hydroxyzine Hcl 25 Mg Tablet) 25 mg PO TID PRN PRN Reason: Anxiety Last Admin: 08/03/22 09:04 Dose: 25 mg Documented By: KENZIE Lactated Ringer's (Lr) 1,000 mls @ 80 mls/hr IVCONT .[id number] [facility] Last Admin: 08/03/22 05:37 Dose: 80 mls/hr Documented By: CLAYTON Lisinopril (Lisinopril 10 Mg Tablet) 10 mg PO DAILY [facility]; Protocol Last Admin: 08/03/22 08:58 Dose: 10 mg Documented By: KENZIE Metoprolol Succinate (Metoprolol Succinate Er 25 Mg Tab.Er.24h) 25 mg PO DAILY [facility]; Protocol Last Admin: 08/03/22 08:57 Dose: 25 mg Documented By: KENZIE Pharmacy Consult (Consult Rx Perform Med Rec) 1 each MISCELLANE ONCE PRN PRN Reason: Consult order Pharmacy Consult (Consult Rx Perform Med Rec) 1 each MISCELLANE ONCE PRN PRN Reason: Consult order Pharmacy Consult (Consult Rx Etoh Phenob Im/Po) 1 each MISCELLANE ONCE PRN; Protocol PRN Reason: Consult order Phenobarbital (Phenobarbital 15 Mg Tablet) 45 mg PO BID [facility]; Protocol Stop: 08/04/22 21:01 Last Admin: 08/03/22 08:57 Dose: 45 mg Documented By: KENZIE Phenobarbital (Phenobarbital 15 Mg Tablet) 15 mg PO BID [facility]; Protocol Stop: 08/06/22 21:01 Phenobarbital (Phenobarbital 15 Mg Tablet) 15 mg PO DAILY [facility]; Protocol Stop: 08/08/22 09:01 Quetiapine Fumarate (Quetiapine Fumarate 50 Mg Tablet) 50 mg PO BEDTIME [facility] Last Admin: 08/02/22 21:53 Dose: 50 mg Documented By: CLAYTON Sodium Chloride (0.9 % Sodium Chloride Flush 3 Ml Syringe) 3 ml IVFLUSH QSHIFT [facility] Last Admin: 08/03/22 08:58 Dose: Not Given Documented By: KENZIE Non-Admin Reason: IV Running Thiamine HCl (Thiamine Hcl 100 Mg Tablet) 100 mg PO DAILY [facility] Last Admin: 08/03/22 08:57 Dose: 100 mg Documented By: KENZIE Trazodone HCl (Trazodone Hcl 50 Mg Tablet) 50 mg PO BEDTIME [facility] Last Admin: 08/02/22 21:53 Dose: 50 mg Documented By: CLAYTON Labs 08/03/22 06:18 08/03/22 06:18 Labs: Laboratory Results - last 24 hr 08/02/22 08/02/22 08/02/22 14:11 14:11 14:21 MCV 92.4 MCH 32.5 MCHC 35.1 RDW 13.5 Plt Count 79 L MPV 10.6 Immature Gran % (Auto) 0.4 Neut % (Auto) 81.8 H Lymph % (Auto) 7.7 L Brule % (Auto) 9.2 Eos % (Auto) 0.2 Baso % (Auto) 0.7 Lymph # (Auto) 0.6 L Brule # (Auto) 0.8 Eos # (Auto) 0.0 Baso # (Auto) 0.1 Abs Immat Gran (auto) 0.03 Absolute Neuts (auto) 6.6 Absolute Nucleated RBC 0.000 Nucleated RBC % (auto) 0.0 PT INR Anion Gap 18 Estim Creat Clear Calc 203.1 Estimated GFR > 60 Random Glucose 120 H Fasting Glucose Lactic Acid 1.4 Calcium 8.9 Magnesium Total Bilirubin 4.2 H Direct Bilirubin 2.1 H AST 171 H ALT 105 H Alkaline Phosphatase 207 H Total Protein 7.0 Albumin 4.1 Vitamin B12 316 Folate 10.5 Urine Color Urine Appearance Urine pH Ur Specific [place] Urine Protein Urine Glucose (UA) Urine Ketones Urine Blood Urine Nitrite Ur Leukocyte Esterase Urine RBC Urine WBC Ur Squamous Epith Cells Urine Bacteria Hyaline Casts Urine Opiates Screen Urine Fentanyl Screen Ur Barbiturates Screen Ur Phencyclidine Scrn Ur Amphetamines Screen U Benzodiazepines Scrn Urine Cocaine Screen U Marijuana (THC) Screen Ethyl Alcohol < 10 COVID-19 (MICHAEL) COVID-19 Publisha Com 08/02/22 08/02/22 08/02/22 14:21 17:12 17:32 MCV MCH MCHC RDW Plt Count MPV Immature Gran % (Auto) Neut % (Auto) Lymph % (Auto) Brule % (Auto) Eos % (Auto) Baso % (Auto) Lymph # (Auto) Brule # (Auto) Eos # (Auto) Baso # (Auto) Abs Immat Gran (auto) Absolute Neuts (auto) Absolute Nucleated RBC Nucleated RBC % (auto) PT 13.3 H INR 1.2 H Anion Gap Estim Creat Clear Calc Estimated GFR Random Glucose Fasting Glucose Lactic Acid Calcium Magnesium Total Bilirubin Direct Bilirubin AST ALT Alkaline Phosphatase Total Protein Albumin Vitamin B12 Folate Urine Color Dark Yellow Urine Appearance Cloudy Urine pH 6.5 Ur Specific [place] >= 1.030 H Urine Protein 100 (2+) H Urine Glucose (UA) Negative Urine Ketones 15 Urine Blood Negative Urine Nitrite Positive H Ur Leukocyte Esterase Trace H Urine RBC 0-2 Urine WBC 0-5 Ur Squamous Epith Cells 0-2 Urine Bacteria 1+ Hyaline Casts 0-2 Urine Opiates Screen Urine Fentanyl Screen Ur Barbiturates Screen Ur Phencyclidine Scrn Ur Amphetamines Screen U Benzodiazepines Scrn Urine Cocaine Screen U Marijuana (THC) Screen Ethyl Alcohol COVID-19 (MICHAEL) Negative COVID-19 Publisha Com See Note 08/02/22 08/03/22 08/03/22 17:32 06:18 06:18 MCV 93.7 MCH 32.5 MCHC 34.7 RDW 13.3 Plt Count 76 L MPV 11.4 Immature Gran % (Auto) Neut % (Auto) Lymph % (Auto) Brule % (Auto) Eos % (Auto) Baso % (Auto) Lymph # (Auto) Brule # (Auto) Eos # (Auto) Baso # (Auto) Abs Immat Gran (auto) Absolute Neuts (auto) Absolute Nucleated RBC 0.000 Nucleated RBC % (auto) 0.0 PT 13.3 H INR 1.2 H Anion Gap Estim Creat Clear Calc Estimated GFR Random Glucose Fasting Glucose Lactic Acid Calcium Magnesium Total Bilirubin Direct Bilirubin AST ALT Alkaline Phosphatase Total Protein Albumin Vitamin B12 Folate Urine Color Urine Appearance Urine pH Ur Specific [place] Urine Protein Urine Glucose (UA) Urine Ketones Urine Blood Urine Nitrite Ur Leukocyte Esterase Urine RBC Urine WBC Ur Squamous Epith Cells Urine Bacteria Hyaline Casts Urine Opiates Screen Not Detected Urine Fentanyl Screen Not Detected Ur Barbiturates Screen Not Detected Ur Phencyclidine Scrn POSITIVE H Ur Amphetamines Screen Not Detected U Benzodiazepines Scrn POSITIVE H Urine Cocaine Screen Not Detected U Marijuana (THC) Screen Not Detected Ethyl Alcohol COVID-19 (MICHAEL) COVID-19 Publisha Com 08/03/22 06:18 MCV MCH MCHC RDW Plt Count MPV Immature Gran % (Auto) Neut % (Auto) Lymph % (Auto) Brule % (Auto) Eos % (Auto) Baso % (Auto) Lymph # (Auto) Brule # (Auto) Eos # (Auto) Baso # (Auto) Abs Immat Gran (auto) Absolute Neuts (auto) Absolute Nucleated RBC Nucleated RBC % (auto) PT INR Anion Gap 19 Estim Creat Clear Calc 197.1 Estimated GFR > 60 Random Glucose Fasting Glucose 91 Lactic Acid Calcium 8.6 Magnesium 2.0 Total Bilirubin 4.7 H Direct Bilirubin 2.7 H AST 201 H ALT 99 H Alkaline Phosphatase 206 H Total Protein 6.4 L Albumin 3.7 Vitamin B12 Folate Urine Color Urine Appearance Urine pH Ur Specific [place] Urine Protein Urine Glucose (UA) Urine Ketones Urine Blood Urine Nitrite Ur Leukocyte Esterase Urine RBC Urine WBC Ur Squamous Epith Cells Urine Bacteria Hyaline Casts Urine Opiates Screen Urine Fentanyl Screen Ur Barbiturates Screen Ur Phencyclidine Scrn Ur Amphetamines Screen U Benzodiazepines Scrn Urine Cocaine Screen U Marijuana (THC) Screen Ethyl Alcohol COVID-19 (MICHAEL) COVID-[address] Head CT 08/02/22 14:33 IMPRESSION: 1. No acute intracranial pathology. 2. Paranasal sinus inflammatory changes. Abdomen Ultrasound 08/02/22 16:19 IMPRESSION: Hepatic steatosis and possible cirrhosis without focal abnormality. Cholelithiasis without evidence for acute cholecystitis. Assessment and Plan (1) Alcohol abuse: Status: Acute (2) Alcoholic hepatitis: Status: Acute Plan hospital d#2 26yo M with EtOH dependence, HTN, and obesity presented with seizure due to EtOH withdrawal # alcohol dependence with withdrawal complicated by alcohol withdrawal seizure and acute alcoholic hepatitis - d#2 phhenobarbital taper - CIWA - monitor LFTs - no steroids indicated - Addiction Medicine consultation # hypertension - lisinopril + metoprolol # nonmorbid obesity - weight loss recommended # VTE ppx: SCDs # dispo: TBD In my clinical judgment, the patient requires continued inpatient hospitalization for the following reasons: inpt EtOH withdrwal tx Time Spent With Patient Time: Total time managing care of this patient today _35___ minutes. Quality Stroke Does the patient have a stroke diagnosis?: No VTE Prior VTE?: No VTE Risk Level:: Medical - moderate - high VTE Device Contraindication: N/A - Device Ordered VTE Drug Contraindication: Treatment Not Tolerated
[2022-08-03 11:08] VITALS: BP 151/85; PULSE 83; RESP 16; TEMP 36.4; O2SAT 98
--- NOTE | 2022-08-03 14:09 | MHC.RECOVRN ---
Met with pt in 462 after consult placed to Addiction Medicine. Pt laying in bed, awake, alert, easily engages in conversation. Slightly tremulous and diaphoretic. Pt reports drinking 3 sleeves of Fireball daily x one month. Prior to that pt had been in recovery for approx 8 months. Pt reports he had gone to [facility] [place] [place] [facility] then continued on to [facility] for about 5 months. After [facility], pt moved in with his mother and had continued his recovery for a few months. Pt reports alcohol use became an issue about 3 years ago. Since then, pt has had multiple AUD admissions including ATS at [facility], [facility], and [facility] [place] [place]; TSS at [place]; [facility]. Pt is currently receiving Vivitrol through [facility] x 4 months as well as counseling. 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 Pt is open to meetings in the evenings but enjoys his job during the day. Pt interested in meeting with a disaster recovery specialist while in the hospital. Pts plan is to dc home and continue with outpatient supports. Denies questions or concerns, t/w available as needed.
[2022-08-03 15:26] VITALS: BP 142/82; PULSE 100; RESP 18; TEMP 36.6; O2SAT 96
[2022-08-03] MEDS: 0.9 % Sodium Chloride Flush 3 ML SYRINGE IVFLUSH ×2 (15:30→23:54)
[2022-08-03] MEDS: PHENobarbitaL sodium 130 MG/ML VIAL 212 MG IM (15:30)
--- NOTE | 2022-08-03 19:14 | PM.EVENT ---
Event Note Date of Service: 08/03/22 Event Note: Addiction consult Please see Recovery Support RN note 08/03/22 Time Spent With Patient Time: Total time managing care of this patient today ____ minutes.
[2022-08-03 19:40] VITALS: BP 154/92; PULSE 97; RESP 18; TEMP 36.5; O2SAT 96
[2022-08-03] MEDS: traZODone HCL 50 MG TABLET PO (20:13)
[2022-08-03] MEDS: QUEtiapine Fumarate 50 MG TABLET PO (20:13)
--- NOTE | 2022-08-03 21:24 | MHC.RECOVSUP ---
? Reason for consult:ETOH o? Current location:[id number] o? Identified substance use concern:? -? Withdrawal -? Support ? Intervention: o? Community resources provided o? Harm reduction discussion ? Plan: ? Additional information:RC met with pt, discussed Recovery coaching services, and resources in the community as well as providied pt with [facility] and academic coach service pamphlets. Pt will contact [facility] when discharged.
--- NOTE | 2022-08-03 22:58 | PC.NURSE ---
anxious, restless, agitated, hallucinating, HR increased, burst of SVT x [address]'s . pt need frequent redirection, MD Renteria notified , Lorazepam ordered
[2022-08-03] MEDS: LORazepam 2 MG/ML VIAL 1 MG IVPUSH (23:45)
[2022-08-04] VITALS (24 sets, daily range): BP systolic 95–175; BP diastolic 50–107; PULSE 76–128; RESP 15–32; TEMP 35–38.7; O2SAT 88–100
--- NOTE | 2022-08-04 00:20 | MHC.PIE ---
P,Withdrawal I.Pt in active withdrawal,hallucinating,shaky,tremulous,getting oob,confused at times.HR tachy with BP 175/95.CIWA 29.States he needs something to help him sleep.Dr Renteria notified.Order for Zyprexa 10 mg IM given.Pt updated and agreeable to medication.Med given. E.Cont to monitor.
[2022-08-04] MEDS: OLANZapine 10 MG VIAL IM (00:52)
[2022-08-04] MEDS: Haloperidol Lactate 5 MG/ML VIAL 1 MG IM (01:58)
[2022-08-04] MEDS: Haloperidol Lactate 5 MG/ML VIAL IM ×2 (03:17→05:35)
[2022-08-04] MEDS: PHENobarbitaL sodium 130 MG/ML VIAL IM ×3 (03:18→05:30)
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
--- NOTE | 2022-08-04 05:10 | MHC.PIE ---
P.Withdrawal I/E.Pt continues to be in active withdrawal.Nursing supervisor meter shop and Dr Renteria notified. ?ICU transfer.Order given for Haldol 5mg IM,Ativan 2mg IV,Phenobarb 130mg IM.Vitals HR 125,BP 134/84,O2 sat 96% RA. notified Dr Jurado to assess patient.Dr Jurado up to unit and pt remained restless,diaphoretic,hallucinating.Given Versed 4mg IV per MD order and transferred to ICU.
[2022-08-04] MEDS: LORazepam 2 MG/ML VIAL IVPUSH (05:29)
--- NOTE | 2022-08-04 05:51 | PM.EVENT ---
Event Note Date of Service: 08/04/22 Event Note: Patient with significant alcohol withdrawal and agitation throughout the night. Given multiple pushes of IM Zyprexa, IM Haldol, IM phenobarb and IV ativan. He continues to remain agitated and hence will consult ICU. Talked to Dr camacho who agrees and will evaluate Time Spent With Patient Time: Total time managing care of this patient today ____ minutes.
[2022-08-04] MEDS: Midazolam HCl/PF 2 MG/2 ML VIAL 4 MG IVPUSH (06:20)
[2022-08-04] MEDS: Rocuronium Bromide 50 MG/5 ML VIAL IVPUSH ×2 (06:48→07:55)
[2022-08-04] MEDS: propofoL 200 MG/20 ML VIAL 100 MG IVPUSH (06:48)
[2022-08-04] MEDS: propofoL 1,000 MG/100 ML VIAL 25.04 MG IVCONT (06:50)
[2022-08-04 06:52] LABS: Alanine Aminotransferase 128 U/L (0-40); Albumin Level 3.9 g/dL (3.5-5.0); Alkaline Phosphatase 210 U/L (39-117); Anion Gap 18 (12-20); Aspartate Amino Transferase 247 U/L (5-37); Bilirubin Total 4.7 mg/dL (0.0-1.0); Blood Urea Nitrogen 9 mg/dL (9-16); Carbon Dioxide 21 mmol/L (22-29); Chloride 97 mmol/L (96-108); Creatinine Clr Calc Pharmacy 178.4; Estimated Glomerular Filt Rate > 60; Glucose Random 93 mg/dL (60-115); Potassium 4.1 mmol/L (3.3-5.1); Sodium 132 mmol/L (135-145); Total Protein 6.5 g/dL (6.5-8.0)
--- NOTE | 2022-08-04 07:01 | W.PM.CCHP ---
Procedures Date of Service Date of Service: 08/04/22 Intubation Intubation Comments: We were called by Dr. Renteria to see the patient because of?worsening delirium tremens.?On entering the room, the patient was noted to?have a markedly altered mental status with hallucinations. He was markedly tachycardic, diaphoretic, and tremulous despite the large quantity of medication he had already been given to include phenobarbital, Haldol and benzodiazepines. It?was immediately apparent that the patient required deep sedation. The patient was intubated for airway management. RSI was carried out with the meds?below.?He was preoxygenated with Ambu bag 100%. RSI was carried out with the meds below.?The glottis was easily visualized with #3 GlideScope, and the trachea was intubated with a 7.5 ETT via?indirect video visualization, atraumatic.? BSBE, +CO2, SpO2 maintained.? The tube was secured at 26 cm at the upper lip. The patient tolerated the procedure well with no complications.? Placement confirmed with chest x-ray. Consent for Procedure: Emergent-no informed consent obtained Time out performed: Yes Sedative: propofol Mg given: 90 Paralytic: rocuronium Mg given: 50 Laryngoscope: fiber optic video scope ET tube size: 7.5 ET tube uncuffed: No Tube secured depth (cm): 26 Tube secured location: lips Tube placement confirmation: visualized tube passing through cords, equal breath sounds bilaterally and confirmation by capnometry Patient tolerated procedure: well and no complications Intubation complications: none
[2022-08-04] MEDS: Midazolam HCl/PF 2 MG/2 ML VIAL 3 MG IVPUSH (07:20)
--- NOTE | 2022-08-04 07:33 | W.PM.CCCN ---
History of Present Illness Data of Consult Service Date: 08/04/22 Requesting physician: Mervin Renteria Primary Care Provider: Nonstaff Physician HPI Reason for consult: Highly agitated delirium 26-year-old morbidly obese male known alcoholic presented to the hospital with new onset of seizure and here has been hallucinating markedly altered mental status markedly to tachycardic diaphoretic tremulous consistent with delirium tremens has been given large quantity of medication including phenobarbital Haldol benzodiazepines etc. went upstairs and we are able to documented this was indeed the case sedated a little further with IV Versed to safely transport down to the ICU and he remained very combative and agitated therefore required deeper sedation with IV propofol and was intubated without complication less an hour later reactive very high volume emesis and fortunately we had the endotracheal tube in place he was placed on OG suction at that time being unable to hear bowel sounds and in he being markedly obese and clearly having evidence of probable cirrhosis given the appearance of the liver on ultrasound along with elevated transaminases and alkaline phosphatase and a mild direct hyperbilirubinemia I felt that the culturing him and treating him empirically as spontaneous bacterial peritonitis would also be lu and he is now on Versed and propofol drips Review of Systems Review of Systems: Yes Unobtainable due to mental status PMFSH Past Medical History Medical History (Updated 08/04/22 @ 13:50 by Francesco Jurado MD) Alcohol abuse HTN (hypertension) Obesity Social History Social History (Updated 08/02/22 @ 16:04 by Cory Feliciano MD) Household Members: Family Household Members Other:: mother Housing: House Do you presently have visiting nurse or other home services: No Alcohol intake: current Alcohol intake frequency: 3 or more drinks per day Alcohol type: hard liquor Patient Tobacco Use Status: Never used Tobacco Advance Directives Date on File: 08/02/22 service: No Current occupational status: disabled Meds Allergies Allergy/AdvReac Type Severity Reaction Status Date / Time No Known Allergies Allergy Verified 08/02/22 13:49 Active Medications: Current Medications Folic Acid (Folic Acid 1 Mg Tablet) 1 mg PO DAILY [facility] Last Admin: 08/03/22 08:57 Dose: 1 mg Hydroxyzine HCl (Hydroxyzine Hcl 25 Mg Tablet) 25 mg PO TID PRN PRN Reason: Anxiety Last Admin: 08/03/22 21:43 Dose: 25 mg Lactated Ringer's (Lr) 1,000 mls @ 80 mls/hr IVCONT .[id number] [facility] Last Infusion: 08/04/22 06:50 Dose: Infused Propofol (Diprivan) 1,000 mg in 100 mls @ 0 mls/hr IVCONT .Q0M [facility]; Protocol Midazolam HCl (Versed) 50 mg in 50 mls @ 2 mls/hr IVCONT .Q24H [facility] Lisinopril (Lisinopril 10 Mg Tablet) 10 mg PO DAILY [facility]; Protocol Last Admin: 08/03/22 08:58 Dose: 10 mg Metoprolol Succinate (Metoprolol Succinate Er 25 Mg Tab.Er.24h) 25 mg PO DAILY [facility]; Protocol Last Admin: 08/03/22 08:57 Dose: 25 mg Midazolam HCl (Midazolam Hcl/Pf 2 Mg/2 Ml Vial) 3 mg IVPUSH ONCE ONE Stop: 08/04/22 07:28 Pharmacy Consult (Consult Rx Perform Med Rec) 1 each MISCELLANE ONCE PRN PRN Reason: Consult order Pharmacy Consult (Consult Rx Perform Med Rec) 1 each MISCELLANE ONCE PRN PRN Reason: Consult order Pharmacy Consult (Consult Rx Etoh Phenob Im/Po) 1 each MISCELLANE ONCE PRN; Protocol PRN Reason: Consult order Phenobarbital (Phenobarbital 15 Mg Tablet) 45 mg PO BID [facility]; Protocol Last Admin: 08/03/22 20:13 Dose: 45 mg Phenobarbital (Phenobarbital 15 Mg Tablet) 15 mg PO BID [facility]; Protocol Phenobarbital (Phenobarbital 15 Mg Tablet) 15 mg PO DAILY [facility]; Protocol Propofol (Propofol 200 Mg/20 Ml Vial) 100 mg IVPUSH ONCE ONE Stop: 08/04/22 07:28 Quetiapine Fumarate (Quetiapine Fumarate 50 Mg Tablet) 50 mg PO BEDTIME [facility] Last Admin: 08/03/22 20:13 Dose: 50 mg Rocuronium [place] (Rocuronium [place] 50 Mg/5 Ml Vial) 50 mg IVPUSH ONCE ONE Stop: 08/04/22 07:28 Sodium Chloride (0.9 % Sodium Chloride Flush 3 Ml Syringe) 3 ml IVFLUSH QSHIFT [facility] Last Admin: 08/03/22 23:54 Dose: 3 ml Thiamine HCl (Thiamine Hcl 100 Mg Tablet) 100 mg PO DAILY [facility] Last Admin: 08/03/22 08:57 Dose: 100 mg Trazodone HCl (Trazodone Hcl 50 Mg Tablet) 50 mg PO BEDTIME [facility] Last Admin: 08/03/22 20:13 Dose: 50 mg Home Medications Medication Instructions Recorded Confirmed Last Taken Type amlodipine 2.5 mg tablet 2.5 mg PO DAILY 08/02/22 Unknown History folic acid 1 mg tablet 1 mg PO DAILY 08/02/22 08/02/22 Unknown History hydroxyzine HCl 25 mg tablet 25 mg PO TID PRN Anxiety 08/02/22 08/02/22 Unknown History lisinopril 10 mg tablet 10 mg PO DAILY 08/02/22 08/02/22 Unknown History melatonin 3 mg tablet 3 mg PO BEDTIME 08/02/22 08/02/22 Unknown History metoprolol succinate 25 mg 25 mg PO DAILY 08/02/22 08/02/22 Unknown History tablet,extended release 24 hr naltrexone microspheres 380 mg 380 mg IM Q28D 08/02/22 Unknown History intramuscular suspension,extended release (Vivitrol) quetiapine 50 mg tablet 50 mg PO BEDTIME 08/02/22 08/02/22 Unknown History thiamine HCl (vitamin B1) 100 mg 100 mg PO DAILY 08/02/22 08/02/22 Unknown History tablet trazodone 50 mg tablet 50 mg PO BEDTIME 08/02/22 08/02/22 Unknown History Physical Exam Vital Signs: Vital Signs: Last Vital Signs Temp 98.9 F 08/04/22 04:00 Pulse 116 H 08/04/22 04:00 Resp 20 08/04/22 00:00 BP 154/83 H 08/04/22 04:00 Pulse Ox 95 08/04/22 04:00 O2 Del Method 08/04/22 04:00 BMI result Body Mass Index 34.0 Even on these drips is blood pressure remains at 104/50 97% oxygen saturation heart rate sinus tachycardia at 01:08 Skin otherwise intact except some patchy areas that look psoriatic No livedo no acrocyanosis Abdomen silent but there is no palpable hepatosplenomegaly Lungs were clear with no adventitious sounds Cardiac exam good bilateral carotid upstrokes no neck vein distension Results Labs 08/03/22 06:18 08/04/22 06:02 Labs: BMP 08/04/22 06:02 Sodium 132 L Potassium 4.1 Chloride 97 Carbon Dioxide 21 L BUN 9 Creatinine 0.74 Calcium 9.0 Liver Function 08/04/22 Range/Units 06:02 Total Bilirubin 4.7 H (0.0-1.0) mg/dL AST 247 H (5-37) U/L ALT 128 H (0-40) U/L Alkaline Phosphatase 210 H (39-117) U/L Albumin 3.9 (3.5-5.0) g/dL Microbiology Microbiology Results: Microbiology 08/02/22 Unknown Urine clean catch - Urine lopez top Urine Culture - Preliminary No growth to date. Assessment and Plan (1) Obesity: Status: Acute (2) HTN (hypertension): Status: Acute (3) Alcohol abuse: Status: Acute (4) Alcoholic hepatitis: Status: Acute (5) Alcohol withdrawal seizure: Status: Acute (6) Acute metabolic encephalopathy: Status: Acute (7) Delirium tremens: Status: Acute Plan Especially with NG suction I am going to initiate fluid hydration I am going to empirically culture and treat as a spontaneous bacterial peritonitis as a potential precipitant although he is afebrile and maintain combination of propofol and Versed drips and will not begin to assess with sedation holiday for 48 hours Time Spent With Patient Time: Total time managing care of this patient today 75____ minutes.
[2022-08-04] MEDS: Midazolam HCl/NS 50 MG/50 ML PLAST..BAG IVCONT ×2 (08:00→20:57)
[2022-08-04] MEDS: Thiamine HCL 100 MG in 0.9 % Sodium Chloride 100 ML 202 MG IV (08:35)
[2022-08-04] MEDS: Pantoprazole Sodium 40 MG/10 ML VIAL IVPUSH (08:35)
[2022-08-04] MEDS: Chlorhexidine Gluc Oral Rinse 15 ML MOUTHWASH BUCCAL ×3 (08:36→20:33)
[2022-08-04] MEDS: propofoL 1,000 MG/100 ML VIAL 31.3 MG IVCONT ×6 (08:46→22:29)
[2022-08-04 14:07] LABS: Ammonia 52 umol/L (13-55)
[2022-08-04] MEDS: cefTRIAXone sodium 2 GM in 0.9 % Sodium Chloride 50 ML IV (14:30)
[2022-08-04] MEDS: KCl 20 mEq in 0.9 % Sodium ChL 20 MEQ/1,000 ML IV.SOLN 125 MEQ IVCONT ×2 (14:31→22:31)
[2022-08-04] MEDS: Midazolam HCl/PF 2 MG/2 ML VIAL IVPUSH (20:30)
[2022-08-05] VITALS (30 sets, daily range): BP systolic 113–148; BP diastolic 68–93; PULSE 80–108; RESP 16–30; TEMP 35–38.2; O2SAT 90–100; BMI 38.7; BMI 37.5
[2022-08-05] MEDS: propofoL 1,000 MG/100 ML VIAL 31.3 MG IVCONT ×9 (01:14→22:31)
[2022-08-05] MEDS: Midazolam HCl/NS 50 MG/50 ML PLAST..BAG IVCONT (03:14)
[2022-08-05 04:39] LABS: VBG Base Excess -3.2 mmol/L; VBG HCO3 22 mmol/L (22-26); VBG pCO2 40 mmHg; VBG pH 7.34 (7.32-7.43); VBG pO2 30 mmHg
[2022-08-05 04:42] LABS: Venous Blood Gas Refer to POC result
[2022-08-05 05:06] LABS: MANUAL DIFF FLAG NO
[2022-08-05 05:10] LABS: Basophils Absolute Auto 0.1 X10*3/uL (0.0-0.2); Basophils Percent Auto 1.2 % (0-2); Imm Gran Abs Auto 0.11 X10*3/uL (0.00-0.03); Imm Gran Pct Auto 1.4 % (0.0-0.4); Monocytes Absolute Auto 0.8 X10*3/uL (0.1-1.2); PLT CLUMP 1; SCAN SMEAR FLAG 1
[2022-08-05 05:12] LABS: Eosinophils Absolute Auto 0.3 X10*3/uL (0.0-0.4); Eosinophils Percent Auto 3.6 % (0-4); Hematocrit 42.7 % (42.0-52.0); Hemoglobin 14.3 g/dl (14.0-18.0); Lymphocytes Absolute Auto 1.5 X10*3/uL (1.2-4.9); Lymphocytes Percent Auto 19.2 % (20-40); Mean Corpuscular HGB Conc 33.5 g/dl (31.0-36.0); Mean Corpuscular Hemoglobin 33.3 pg (27.0-33.0); Mean Corpuscular Volume 99.5 fL (80.0-98.0); Mean Platelet Volume 11.4 fL (9.4-12.4); Monocytes Percent Auto 10.6 % (2-11); Red Blood Count 4.29 X10*6/uL (4.60-5.80); Red Cell Distribution Width 13.9 % (11.0-16.0)
[2022-08-05 05:14] LABS: Platelet Count 94 X10*3/uL (160-400); White Blood Count 7.8 X10*3/uL (4.8-10.8)
[2022-08-05] MEDS: Pantoprazole Sodium 40 MG/10 ML VIAL IVPUSH (05:16)
[2022-08-05] MEDS: KCl 20 mEq in 0.9 % Sodium ChL 20 MEQ/1,000 ML IV.SOLN 125 MEQ IVCONT ×3 (05:24→21:08)
[2022-08-05 05:44] LABS: Albumin Level 3.7 g/dL (3.5-5.0); Anion Gap 22 (12-20); Blood Urea Nitrogen 9 mg/dL (9-16); Calcium 8.2 mg/dL (8.4-10.2); Carbon Dioxide 18 mmol/L (22-29); Chloride 102 mmol/L (96-108); Creatinine Clr Calc Pharmacy 190.9; Estimated Glomerular Filt Rate > 60; Glucose Random 66 mg/dL (60-115); Phosphorus 2.9 mg/dL (2.7-4.5); Potassium 4.1 mmol/L (3.3-5.1); Sodium 138 mmol/L (135-145)
[2022-08-05 07:25] LABS: Lactic Acid 0.6 mmol/L (0.5-2.0)
[2022-08-05 07:35] LABS: Lactate Dehydrogenase 233 U/L (118-273); Lipase 83 U/L (8-78)
[2022-08-05 07:51] LABS: Procalcitonin 0.27 ng/mL
[2022-08-05] MEDS: Midazolam HCl/PF 2 MG/2 ML VIAL 3 MG IVPUSH ×3 (08:45→17:10)
[2022-08-05] MEDS: Thiamine HCL 100 MG in 0.9 % Sodium Chloride 100 ML 202 MG IV (09:05)
[2022-08-05] MEDS: Chlorhexidine Gluc Oral Rinse 15 ML MOUTHWASH BUCCAL ×3 (09:06→20:00)
--- NOTE | 2022-08-05 09:30 | PHA.PROG ---
Admission Date/Time: August 02, 2022 15:59 Indication: possible SBP Weight in k kg Adjusted body weight in K.02 kg [place] body weight in K.7 kg Obesity Dosing Indication % IBW: 168 % Serum Creatinine - Last 168 Hours 08/02/22 08/03/22 08/04/22 14:11 06:18 06:02 Creatinine 0.65 0.67 0.74 08/05/22 04:31 Creatinine 0.74 Estimated CrCl and GFR - Last 168 Hours 08/02/22 08/03/22 08/04/22 14:11 06:18 06:02 Estim Creat Clear Calc 203.1 197.1 178.4 Estimated GFR > 60 > 60 > 60 08/05/22 04:31 Estim Creat Clear Calc 190.9 Estimated GFR > 60 Vancomycin Loading Dose: 2000 mg Current Vancomycin Dosing Regimen: 1250 mg Q12H Date and Time for next Vancomycin Level to be drawn: 08/06 @ 1900 Pharmacist Comments on Vancomycin Plan: Patient received an adequate loading dose vanco 2000 mg on 08/05 @ 0906. Maintenance dose vancomycin 1250 mg Q12H is scheduled to start 08/05@ 2100. Expected AUC 555 with a trough of 15.5 Level is schedule to be drawn prior to 4th dose Pharmacy will monitor renal function daily Breonna Pollock PharmD Vancomycin dosing will take advantage of [employer] as a clinical decision support tool that uses Bayesian modeling to calculate individual patient's pharmacokinetic parameters and forecast the patient's drug concentration time course with the target goal AUC 24 range of 400 - 600 mg/L/hr.
[2022-08-05] MEDS: Midazolam HCl/NS 50 MG/50 ML PLAST..BAG 6 MG IVCONT ×2 (12:48→20:03)
--- NOTE | 2022-08-05 17:21 | P.PNCC_ITS ---
Subjective Subjective Date of Service: 08/05/22 Interval History: Although he did not look different clinically and clearly has not regain cognitive function when we lessened his sedation he had a new of borderline positive anion gap metabolic acidosis but a lactate came back within normal limits and with a low-grade temperature and clearly left basilar or diaphragmatic infiltrate in of from from aspiration because he did have seizures being a prior to coming to the hospital i.e. was concerned because there was more abdominal distension we went for a CT scan of the abdomen and pelvis and he did indeed have acute pancreatitis presumably of course on the basis of the alcohol so II kept him NPO for another day recent dated him and hemodynamically he has remained stable in addition he is developing hyperchloremic metabolic acidosis Critical Care Time (minutes): 45 Physical Exam Vital Signs: Vital Signs: Last Vital Signs Temp 100.2 F 08/05/22 17:00 Pulse 104 H 08/05/22 17:00 Resp 22 H 08/05/22 17:00 BP 133/93 H 08/05/22 17:00 Pulse Ox 95 08/05/22 17:00 O2 Del Method 08/05/22 17:00 FiO2 30 08/05/22 17:00 BMI result Body Mass Index 37.5 sedated and intubated-still agitated developing L. diaphragmatic infiltrate from aspiration abdomen distended and quiet-no palpable organomegaly bedside echo with normal LV function Objective Data Labs 08/05/22 04:31 08/05/22 04:31 Labs: Laboratory Results - last 24 hr 08/05/22 08/05/22 08/05/22 04:28 04:31 04:31 WBC 7.8 RBC 4.29 L Hgb 14.3 Hct 42.7 MCV 99.5 H D MCH 33.3 H MCHC 33.5 RDW 13.9 Plt Count 94 L MPV 11.4 Immature Gran % (Auto) 1.4 H Neut % (Auto) 64.0 Lymph % (Auto) 19.2 L [place] % (Auto) 10.6 Eos % (Auto) 3.6 Baso % (Auto) 1.2 Lymph # (Auto) 1.5 [place] # (Auto) 0.8 Eos # (Auto) 0.3 Baso # (Auto) 0.1 Abs Immat Gran (auto) 0.11 H Absolute Neuts (auto) 5.0 Absolute Nucleated RBC 0.000 Nucleated RBC % (auto) 0.0 VBG pH 7.34 VBG pCO2 40 VBG pO2 30 VBG HCO3 22 VBG O2 Saturation 41.0 VBG Base Excess -3.2 Sodium 138 Potassium 4.1 Chloride 102 Carbon Dioxide 18 L Anion Gap 22 H BUN 9 Creatinine 0.74 Estim Creat Clear Calc 190.9 Estimated GFR > 60 Random Glucose 66 Lactic Acid Calcium 8.2 L D Phosphorus 2.9 Magnesium 2.0 Lactate Dehydrogenase Albumin 3.7 Lipase Procalcitonin 08/05/22 08/05/22 07:05 07:05 WBC RBC Hgb Hct MCV MCH MCHC RDW Plt Count MPV Immature Gran % (Auto) Neut % (Auto) Lymph % (Auto) [place] % (Auto) Eos % (Auto) Baso % (Auto) Lymph # (Auto) [place] # (Auto) Eos # (Auto) Baso # (Auto) Abs Immat Gran (auto) Absolute Neuts (auto) Absolute Nucleated RBC Nucleated RBC % (auto) VBG pH VBG pCO2 VBG pO2 VBG HCO3 VBG O2 Saturation VBG Base Excess Sodium Potassium Chloride Carbon Dioxide Anion Gap BUN Creatinine Estim Creat Clear Calc Estimated GFR Random Glucose Lactic Acid 0.6 Calcium Phosphorus Magnesium Lactate Dehydrogenase 233 Albumin Lipase 83 H Procalcitonin 0.27 Microbiology Microbiology Results: Microbiology 08/04/22 13:52 Blood - Venous Blood Culture - Preliminary No growth after 24 hours. 08/04/22 13:55 Blood - Venous Blood Culture - Preliminary No growth after 24 hours. 08/05/22 07:30 Sputum - Suctioned Gram Stain - Final 08/02/22 Unknown Urine clean catch - Urine lopez top Urine Culture - Final Progress Note: A&P Assessment and plan (1) Acute alcoholic pancreatitis: Status: Acute (2) Acute respiratory failure: Status: Acute (3) Delirium tremens: Status: Acute (4) Acute metabolic encephalopathy: Status: Acute (5) Obesity: Status: Acute (6) HTN (hypertension): Status: Acute (7) Alcohol abuse: Status: Acute (8) Alcoholic hepatitis: Status: Acute (9) Alcohol withdrawal seizure: Status: Acute Plan delirium tremens and alcoholic pancreatitis requiring deeper sedation and intubation Quality Stroke Does the patient have a stroke diagnosis?: No VTE Prior VTE?: No VTE Risk Level:: Medical - moderate - high VTE Device Contraindication: N/A - Device Ordered VTE Drug Contraindication: Treatment Not Tolerated
[2022-08-05] MEDS: dexmedeTOMIDidine HCL/NS 400 MCG/100 ML INFUS..BTL 28.8 MCG IVCONT ×2 (19:14→21:08)
[2022-08-05] MEDS: vancomycin HCL 1,250 MG in 0.9 % Sodium Chloride 250 ML 166.67 MG IV (20:00)
[2022-08-06] VITALS (37 sets, daily range): BP systolic 123–151; BP diastolic 72–107; PULSE 78–89; RESP 15–29; TEMP 34.9–38.5; O2SAT 91–96; BMI 38.9
[2022-08-06] MEDS: dexmedeTOMIDidine HCL/NS 400 MCG/100 ML INFUS..BTL 28.8 MCG IVCONT ×6 (00:26→16:07)
[2022-08-06] MEDS: propofoL 1,000 MG/100 ML VIAL 31.3 MG IVCONT ×10 (00:30→23:48)
[2022-08-06] MEDS: Midazolam HCl/NS 50 MG/50 ML PLAST..BAG 6 MG IVCONT (04:00)
[2022-08-06] MEDS: KCl 20 mEq in 0.9 % Sodium ChL 20 MEQ/1,000 ML IV.SOLN 125 MEQ IVCONT (04:02)
[2022-08-06 05:33] LABS: VBG Base Excess -4.6 mmol/L; VBG HCO3 19 mmol/L (22-26); VBG pCO2 32 mmHg; VBG pH 7.38 (7.32-7.43); VBG pO2 68 mmHg
[2022-08-06 05:34] LABS: Hemoglobin 13.6 g/dl (14.0-18.0); Mean Platelet Volume 10.2 fL (9.4-12.4); Monocytes Absolute Auto 0.9 X10*3/uL (0.1-1.2); PLT CLUMP 1; SCAN SMEAR FLAG 1; Venous Blood Gas Refer to POC result
[2022-08-06 05:35] LABS: Basophils Absolute Auto 0.1 X10*3/uL (0.0-0.2); Basophils Percent Auto 1.3 % (0-2); Eosinophils Absolute Auto 0.4 X10*3/uL (0.0-0.4); Eosinophils Percent Auto 4.9 % (0-4); Hematocrit 40.9 % (42.0-52.0); Imm Gran Abs Auto 0.13 X10*3/uL (0.00-0.03); Imm Gran Pct Auto 1.8 % (0.0-0.4); Lymphocytes Absolute Auto 1.8 X10*3/uL (1.2-4.9); Lymphocytes Percent Auto 25.5 % (20-40); Mean Corpuscular HGB Conc 33.3 g/dl (31.0-36.0); Mean Corpuscular Hemoglobin 32.9 pg (27.0-33.0); Mean Corpuscular Volume 98.8 fL (80.0-98.0); Monocytes Percent Auto 13.1 % (2-11); Neutrophils Absolute Auto 3.8 x10*3/uL (2.0-8.3); Neutrophils Percent Auto 53.4 % (45-73); Red Blood Count 4.14 X10*6/uL (4.60-5.80); Red Cell Distribution Width 14.1 % (11.0-16.0)
[2022-08-06 05:38] LABS: MANUAL DIFF FLAG NO; Platelet Count 108 X10*3/uL (160-400); White Blood Count 7.2 X10*3/uL (4.8-10.8)
[2022-08-06] MEDS: Pantoprazole Sodium 40 MG/10 ML VIAL IVPUSH (05:38)
[2022-08-06 05:53] LABS: Alanine Aminotransferase 80 U/L (0-40); Albumin Level 3.3 g/dL (3.5-5.0); Alkaline Phosphatase 165 U/L (39-117); Anion Gap 17 (12-20); Aspartate Amino Transferase 97 U/L (5-37); Bilirubin Total 1.8 mg/dL (0.0-1.0); Blood Urea Nitrogen 6 mg/dL (9-16); Calcium 7.8 mg/dL (8.4-10.2); Carbon Dioxide 17 mmol/L (22-29); Chloride 110 mmol/L (96-108); Creatinine Clr Calc Pharmacy 202.4; Estimated Glomerular Filt Rate > 60; Glucose Random 96 mg/dL (60-115); Lipase 90 U/L (8-78); Phosphorus 1.9 mg/dL (2.7-4.5); Potassium 4.7 mmol/L (3.3-5.1); Sodium 139 mmol/L (135-145); Total Protein 5.9 g/dL (6.5-8.0)
[2022-08-06] MEDS: Lactated Ringers 1,000 ML 50 ML IVCONT (06:42)
[2022-08-06] MEDS: Chlorhexidine Gluc Oral Rinse 15 ML MOUTHWASH BUCCAL ×3 (08:27→19:36)
[2022-08-06] MEDS: vancomycin HCL 1,250 MG in 0.9 % Sodium Chloride 250 ML 166.67 MG IV (08:29)
[2022-08-06] MEDS: Thiamine HCL 100 MG in 0.9 % Sodium Chloride 100 ML 202 MG IV (08:30)
[2022-08-06] MEDS: Sodium,Potassium Phosphates POWD.PACK 2 PACKET PO ×2 (09:29→19:36)
--- NOTE | 2022-08-06 09:34 | MHC.CLN ---
RE: CONSULT PT IS INTUBATED AND SEDATED PT CURRENTLY RECEIVING JEVITY 1.0 AT MAX GOAL RATE 50ML/HR WITH 120ML FWF Q 4 HRS PROVIDES 1272KCALS (2098KCALS WITH SEDATION; 29KCLAS/KG), 53G PROTEIN (.7G/KG), 1722ML TOTAL WATER FROM FORMULA AND FLUSHES RECOMMEND CHANGE IN FORMULA; PROMOTE AT MAX GOAL RATE 35ML/HR WITH 30ML PROSOURCE BID AND 240ML FREE WATER FLUSHES Q 4 HRS TO PROVIDE 960KCALS (1786KCALS WITH SEDATION; 24KCALS/KG), 82.5G TOTAL PROTEIN (1.1G/KG), 2145ML TOTAL FLUID FROM FORMULA AND FLUSHES (29ML/KG) MONITOR TOLERANCE, RESIDUALS AND LYTES SEE ALSO FULL CLINICAL NUTRITION ASSESSMENT
--- NOTE | 2022-08-06 11:33 | PM.CCPN ---
Subjective Subjective Date of Service: 08/06/22 Interval History: 26-year-old gentleman with underlying history of obesity, alcoholism with prior alcohol withdrawal seizures, alcoholic hepatitis admitted on 08/02/2022 with alcohol withdrawal with escalating sedative requirements requiring transfer to intensive care unit and intubation on 08/04/2022. No events overnight. Critical Care Time (minutes): 45 Physical Exam Vital Signs: Vital Signs: Last Vital Signs Temp 100.9 F H 08/06/22 10:52 Pulse 86 08/06/22 10:52 Resp 18 08/06/22 10:52 BP 151/107 H 08/06/22 10:52 Pulse Ox 94 08/06/22 10:52 O2 Del Method 08/06/22 10:52 FiO2 30 08/06/22 10:52 BMI result Body Mass Index 38.9 Const: General: no acute distress and other (Sedated on the vent) Nutritional Appearance: obese Eyes: Sclerae: sclerae normal EOM: EOMs intact bilaterally Neck: Neck: Yes no lymphadenopathy, Yes trachea midline and Yes supple Resp: Auscultation: clear to auscultation bilaterally Cardio: Rate: regular rate Rhythm: regular rhythm Heart sounds: no gallops, no murmurs and no rubs GI: Palpation (GI): Soft to palpation and Other GI palpation findings present ( Nontender) Auscultation: normal bowel sounds Extrem: General: Yes no pedal edema, No clubbing and No cyanosis Objective Data Labs 08/06/22 05:17 08/06/22 05:17 Labs: Laboratory Results - last 24 hr 08/06/22 08/06/22 08/06/22 05:17 05:17 05:25 WBC 7.2 RBC 4.14 L Hgb 13.6 L Hct 40.9 L MCV 98.8 H MCH 32.9 MCHC 33.3 RDW 14.1 Plt Count 108 L MPV 10.2 Immature Gran % (Auto) 1.8 H Neut % (Auto) 53.4 Lymph % (Auto) 25.5 [place] % (Auto) 13.1 H Eos % (Auto) 4.9 H Baso % (Auto) 1.3 Lymph # (Auto) 1.8 [place] # (Auto) 0.9 Eos # (Auto) 0.4 Baso # (Auto) 0.1 Abs Immat Gran (auto) 0.13 H Absolute Neuts (auto) 3.8 Absolute Nucleated RBC 0.000 Nucleated RBC % (auto) 0.0 VBG pH 7.38 VBG pCO2 32 VBG pO2 68 VBG HCO3 19 L VBG O2 Saturation 93.0 VBG Base Excess -4.6 Sodium 139 Potassium 4.7 Chloride 110 H Carbon Dioxide 17 L Anion Gap 17 BUN 6 L Creatinine 0.70 Estim Creat Clear Calc 202.4 Estimated GFR > 60 Random Glucose 96 Calcium 7.8 L Phosphorus 1.9 L Magnesium 2.0 Total Bilirubin 1.8 H AST 97 H ALT 80 H Alkaline Phosphatase 165 H Total Protein 5.9 L Albumin 3.3 L Lipase 90 H Microbiology Microbiology Results: Microbiology 08/05/22 07:05 Blood - Venous Blood Culture - Preliminary No growth after 24 hours. 08/05/22 07:05 Blood - Venous Blood Culture - Preliminary No growth after 24 hours. 08/05/22 07:30 Sputum - Suctioned Gram Stain - Final 08/05/22 07:30 Sputum - Suctioned Sputum Culture - Preliminary Culture in progress. 08/04/22 13:52 Blood - Venous Blood Culture - Preliminary No growth after 24 hours. 08/04/22 13:55 Blood - Venous Blood Culture - Preliminary No growth after 24 hours. 08/02/22 Unknown Urine clean catch - Urine lopez top Urine Culture - Final Progress Note: A&P Assessment and plan (1) Delirium tremens: Status: Acute (2) Acute metabolic encephalopathy: Status: Acute (3) Acute respiratory failure: Status: Acute (4) Alcoholic hepatitis: Status: Acute Plan Assessment: 26-year-old gentleman with underlying history of obesity, alcohol dependence, prior alcohol withdrawal seizures admitted with delirium tremens, now requiring ventilatory support. Plan: Neuro: Delirium tremens, continue to titrate of sedative drips as tolerated. Cardiac: No acute issues. Pulmonary: Acute respiratory failure secondary to delirium tremens continue to titrate off ventilatory support as tolerated. Renal: No acute issues. Endo: No acute issues. GI: No acute issues. ID: No acute issues Heme/Onc: No acute issues. Psych: No acute issues. Miscellaneous: No acute issues. Prophylaxis: Heparin, ppi Diet: Tube feeds Critical care time spent: 45 minutes Quality Stroke Does the patient have a stroke diagnosis?: No VTE Prior VTE?: No VTE Risk Level:: Medical - moderate - high VTE Device Contraindication: N/A - Device Ordered VTE Drug Contraindication: Treatment Not Tolerated
[2022-08-06] MEDS: Heparin Sodium,Porcine 5,000 UNIT/ML VIAL 5000 UNIT SUBCUT ×2 (12:16→19:36)
[2022-08-06] MEDS: Cisatracurium Besylate 100 MG in 0.9 % Sodium Chloride 40 ML 7.18 MG IVCONT ×2 (14:11→19:14)
[2022-08-06] MEDS: Midazolam HCl/PF 2 MG/2 ML VIAL 3 MG IVPUSH ×2 (14:34→19:30)
[2022-08-06 14:37] LABS: Anion Gap 19 (12-20); Blood Urea Nitrogen 5 mg/dL (9-16); Calcium 8.3 mg/dL (8.4-10.2); Carbon Dioxide 18 mmol/L (22-29); Chloride 107 mmol/L (96-108); Creatinine Clr Calc Pharmacy 186.4; Estimated Glomerular Filt Rate > 60; Glucose Random 112 mg/dL (60-115); Potassium 4.5 mmol/L (3.3-5.1); Sodium 139 mmol/L (135-145)
--- NOTE | 2022-08-06 18:25 | PC.NURSE ---
PATIENT SEDATED ON PROPOFOL GTT, VERSED GTT, AND PRECEDEX GTT AT BEGINNING OF SHIFT. VERSED GTT D/C PER MD SHORTLY AFTER MORNING ASSESSMENT, SEE EMAR. PATIENT REMAINED HEAVILY SEDATED, RASS -4, FOR MAJORITY OF DAY. PATIENT LATER BROKE THROUGH HEAVILY SEDATION. PATIENT HEAVILY AGITATED, PULLING AT RESTRAINTS, ATTEMPTING TO SELF-EXTUBATE. PATIENT FIGHTING VENT, COUGHING, AND STACKING BREATHS. NIMBEX GTT STARTED PER MD ORDER, SEE EMAR. VENT SYNCHRONY ACHIEVED. UPON FAMILIAL STIMULATION AND DISREGARD OF RN ADVISE TO ALLOW PATIENT TO REST, PATIENT GREW INCREASINGLY AGITATED. PRN IVP VERSED 3MG GIVEN. SEE EMAR. TUBE FEED DIET STARTED. PATIENT BATHED, PATIENT AND FAMILY UPDATED ON HEALTH STATUS, ROUTINE ORAL CARE PREFORMED, ROTATED Q2HR.
[2022-08-06] MEDS: dexmedeTOMIDidine HCL/NS 400 MCG/100 ML INFUS..BTL 29.93 MCG IVCONT ×2 (19:28→22:14)
[2022-08-06 19:32] LABS: Vancomycin Trough 4.7 mcg/mL (10.0-20.0)
[2022-08-07] VITALS (35 sets, daily range): BP systolic 115–148; BP diastolic 81–110; PULSE 69–96; RESP 10–20; TEMP 34.9–37.6; O2SAT 91–97; BMI 38.7
[2022-08-07] MEDS: Cisatracurium Besylate 100 MG in 0.9 % Sodium Chloride 40 ML 7.18 MG IVCONT ×2 (01:24→08:13)
[2022-08-07] MEDS: dexmedeTOMIDidine HCL/NS 400 MCG/100 ML INFUS..BTL 29.93 MCG IVCONT ×5 (01:25→22:54)
[2022-08-07] MEDS: propofoL 1,000 MG/100 ML VIAL 31.3 MG IVCONT ×3 (02:42→08:18)
[2022-08-07] MEDS: Heparin Sodium,Porcine 5,000 UNIT/ML VIAL 5000 UNIT SUBCUT ×3 (04:47→20:18)
[2022-08-07 05:13] LABS: VBG Base Excess -2.8 mmol/L; VBG HCO3 22 mmol/L (22-26); VBG pCO2 42 mmHg; VBG pH 7.33 (7.32-7.43); VBG pO2 63 mmHg
[2022-08-07 05:22] LABS: Venous Blood Gas Refer to POC result
[2022-08-07 05:24] LABS: Basophils Absolute Auto 0.1 X10*3/uL (0.0-0.2); Basophils Percent Auto 1.3 % (0-2); Eosinophils Absolute Auto 0.4 X10*3/uL (0.0-0.4); Eosinophils Percent Auto 5.1 % (0-4); Hematocrit 42.9 % (42.0-52.0); Hemoglobin 14.2 g/dl (14.0-18.0); Imm Gran Abs Auto 0.16 X10*3/uL (0.00-0.03); Imm Gran Pct Auto 2.3 % (0.0-0.4); Lymphocytes Absolute Auto 1.1 X10*3/uL (1.2-4.9); Lymphocytes Percent Auto 15.8 % (20-40); Mean Corpuscular HGB Conc 33.1 g/dl (31.0-36.0); Mean Corpuscular Hemoglobin 32.9 pg (27.0-33.0); Mean Corpuscular Volume 99.5 fL (80.0-98.0); Mean Platelet Volume 10.2 fL (9.4-12.4); Monocytes Absolute Auto 0.9 X10*3/uL (0.1-1.2); Monocytes Percent Auto 12.8 % (2-11); Neutrophils Absolute Auto 4.3 x10*3/uL (2.0-8.3); Neutrophils Percent Auto 62.7 % (45-73); PLT CLUMP 1; Red Blood Count 4.31 X10*6/uL (4.60-5.80); Red Cell Distribution Width 14.1 % (11.0-16.0); SCAN SMEAR FLAG 1
[2022-08-07 05:29] LABS: MANUAL DIFF FLAG NO; White Blood Count 6.9 X10*3/uL (4.8-10.8)
[2022-08-07] MEDS: Pantoprazole Sodium 40 MG/10 ML VIAL IVPUSH (05:30)
[2022-08-07 05:34] LABS: Albumin Level 3.4 g/dL (3.5-5.0); Anion Gap 18 (12-20); Blood Urea Nitrogen 5 mg/dL (9-16); Calcium 8.2 mg/dL (8.4-10.2); Carbon Dioxide 20 mmol/L (22-29); Chloride 105 mmol/L (96-108); Creatinine Clr Calc Pharmacy 201.9; Estimated Glomerular Filt Rate > 60; Glucose Random 116 mg/dL (60-115); Magnesium 1.9 mg/dL (1.6-2.6); Phosphorus 3.5 mg/dL (2.7-4.5); Potassium 4.6 mmol/L (3.3-5.1); Sodium 138 mmol/L (135-145)
[2022-08-07 05:40] LABS: Platelet Count 136 X10*3/uL (160-400)
[2022-08-07] MEDS: Chlorhexidine Gluc Oral Rinse 15 ML MOUTHWASH BUCCAL ×2 (08:13→14:35)
[2022-08-07] MEDS: Thiamine HCL 100 MG in 0.9 % Sodium Chloride 100 ML 202 MG IV (08:14)
--- NOTE | 2022-08-07 10:32 | P.PNCC_ITS ---
Subjective Subjective Date of Service: 08/07/22 Interval History: 26-year-old gentleman with underlying history of obesity, alcoholism with prior alcohol withdrawal seizures, alcoholic hepatitis admitted on 08/02/2022 with alcohol withdrawal with escalating sedative requirements requiring transfer to intensive care unit and intubation on 08/04/2022. No events overnight. Remains significantly agitated with sedation vacation. Critical Care Time (minutes): 45 Physical Exam Vital Signs: Vital Signs: Last Vital Signs Temp 99.1 F 08/07/22 10:00 Pulse 83 08/07/22 10:00 Resp 10 L 08/07/22 10:00 BP 134/83 08/07/22 10:00 Pulse Ox 94 08/07/22 10:00 O2 Del Method 08/07/22 10:00 FiO2 30 08/07/22 10:00 BMI result Body Mass Index 38.7 Const: General: no acute distress and other ( sedated on the vent) Nutritional Appearance: obese Eyes: Sclerae: sclerae normal EOM: EOMs intact bilaterally Neck: Neck: Yes no lymphadenopathy, Yes trachea midline and Yes supple Resp: Effort & Inspection: normal respiratory effort and no respiratory distress Auscultation: clear to auscultation bilaterally Cardio: Rate: regular rate Rhythm: regular rhythm Heart sounds: no gallops, no murmurs and no rubs GI: Palpation (GI): Soft to palpation and Other GI palpation findings present ( Nontender) Auscultation: normal bowel sounds Extrem: General: No clubbing, No cyanosis and Yes edema ( trace bilateral) Objective Data Labs 08/07/22 05:08 08/07/22 05:08 Labs: Laboratory Results - last 24 hr 08/06/22 08/06/22 08/07/22 14:13 19:06 05:06 WBC RBC Hgb Hct MCV MCH MCHC RDW Plt Count MPV Immature Gran % (Auto) Neut % (Auto) Lymph % (Auto) [place] % (Auto) Eos % (Auto) Baso % (Auto) Lymph # (Auto) [place] # (Auto) Eos # (Auto) Baso # (Auto) Abs Immat Gran (auto) Absolute Neuts (auto) Absolute Nucleated RBC Nucleated RBC % (auto) VBG pH 7.33 VBG pCO2 42 VBG pO2 63 VBG HCO3 22 VBG O2 Saturation 89.0 VBG Base Excess -2.8 Sodium 139 Potassium 4.5 Chloride 107 Carbon Dioxide 18 L Anion Gap 19 BUN 5 L Creatinine 0.76 Estim Creat Clear Calc 186.4 Estimated GFR > 60 Random Glucose 112 Calcium 8.3 L D Phosphorus Magnesium Albumin Vancomycin Trough 4.7 L 08/07/22 08/07/22 05:08 05:08 WBC 6.9 RBC 4.31 L Hgb 14.2 Hct 42.9 MCV 99.5 H MCH 32.9 MCHC 33.1 RDW 14.1 Plt Count 136 L D MPV 10.2 Immature Gran % (Auto) 2.3 H Neut % (Auto) 62.7 Lymph % (Auto) 15.8 L [place] % (Auto) 12.8 H Eos % (Auto) 5.1 H Baso % (Auto) 1.3 Lymph # (Auto) 1.1 L [place] # (Auto) 0.9 Eos # (Auto) 0.4 Baso # (Auto) 0.1 Abs Immat Gran (auto) 0.16 H Absolute Neuts (auto) 4.3 Absolute Nucleated RBC 0.000 Nucleated RBC % (auto) 0.0 VBG pH VBG pCO2 VBG pO2 VBG HCO3 VBG O2 Saturation VBG Base Excess Sodium 138 Potassium 4.6 Chloride 105 Carbon Dioxide 20 L Anion Gap 18 BUN 5 L Creatinine 0.70 Estim Creat Clear Calc 201.9 Estimated GFR > 60 Random Glucose 116 H Calcium 8.2 L Phosphorus 3.5 Magnesium 1.9 Albumin 3.4 L Vancomycin Trough Microbiology Microbiology Results: Microbiology 08/05/22 07:05 Blood - Venous Blood Culture - Preliminary No growth after 48 hours. 08/05/22 07:05 Blood - Venous Blood Culture - Preliminary No growth after 48 hours. 08/05/22 07:30 Sputum - Suctioned Gram Stain - Final 08/05/22 07:30 Sputum - Suctioned Sputum Culture - Final 08/04/22 13:52 Blood - Venous Blood Culture - Preliminary No growth after 48 hours. 08/04/22 13:55 Blood - Venous Blood Culture - Preliminary No growth after 48 hours. 08/02/22 Unknown Urine clean catch - Urine lopez top Urine Culture - Final Progress Note: A&P Assessment and plan (1) Acute respiratory failure: Status: Acute (2) Delirium tremens: Status: Acute (3) Acute metabolic encephalopathy: Status: Acute (4) Obesity: Status: Acute (5) HTN (hypertension): Status: Acute Plan Assessment: 26-year-old gentleman with underlying history of obesity, alcohol dependence, prior alcohol withdrawal seizures admitted with delirium tremens, now requiring ventilatory support. Plan: Neuro: Delirium tremens, continue to titrate off sedative drips as tolerated. Cardiac: No acute issues. Pulmonary: Acute respiratory failure secondary to delirium tremens continue to titrate off ventilatory support as tolerated. Still with significant agitation with sedation vacation. Renal: No acute issues. Endo: No acute issues. GI: No acute issues. ID: No acute issues Heme/Onc: No acute issues. Psych: No acute issues. Miscellaneous: No acute issues. Prophylaxis: Heparin, ppi Diet: Tube feeds Critical care time spent: 45 minutes Quality Stroke Does the patient have a stroke diagnosis?: No VTE Prior VTE?: No VTE Risk Level:: Medical - moderate - high VTE Device Contraindication: N/A - Device Ordered VTE Drug Contraindication: Treatment Not Tolerated
[2022-08-07] MEDS: dexmedeTOMIDidine HCL/NS 400 MCG/100 ML INFUS..BTL 44.89 MCG IVCONT (14:35)
[2022-08-07] MEDS: dexmedeTOMIDidine HCL/NS 400 MCG/100 ML INFUS..BTL 23.94 MCG IVCONT (18:32)
--- NOTE | 2022-08-07 22:13 | PC.NURSE ---
PATIENT SEDATED TO A RASS -4 ON MORNING ASSESSMENT. PORPOFOL, PRECEDEX, AND NIMBEX GTT RUNNING. PROPOFOL AND NIMBEX GTT PAUSED AT 0828, SEE EMAR. PATIENT QUICKLY BEGAN TO AWAKEN FROM SEDATION. 0915 PATIENT GREW INCREASINGLY AGITATED PULLING AT RESTRAINTS AND REACHING FOR TUBE. PSV TRIAL INITIATED AT 0930 PRESSURE SUPPORT 12, PEEP 5, FIO2 30%. PATIENT BEGAN TO DECREASE IN LEVEL OF AGITATION. OCCASIONALLY COUGHING AT ETT. PATIENT SOON ABLE TO FOLLOW ALL COMMANDS, ANSWERING QUESTIONS WITH YES/NO NODS, FOLLOWING BREATHING COMMANDS. PATIENT EXTUBATED BY RT WITH RN ASSISTANCE AT 1124. OG TUBE REMOVED WITH ETT. PATIENT GIVEN 2L [place] SUPPLEMENTAL 02. ABLE TO MAINTAIN O2 LEVELS OVER DURATION OF SHIFT. PATIENT STATED MULTIPLE TIMES OF AUDIO/VISUAL HALLUCINATIONS. MD AWARE. PATIENT EASILY REDIRECTABLE TO CURRENT SURROUNDS AND UNDERSTANDS HE IS HAVING DETOX HALLUCINATIONS. PATIENT OFTEN MOVES AROUND IN BED, MAKING FREQUENT SHIFTS IN POSITION AND SLIDES TO BOTTOM OF BED. OCCASIONALLY PATIENT WILL ATTEMPT TO GET LEGS OUT OF BED TO GO SHOWER GET WATER GO TO THE BASEMENT . PATIENT OFTEN GRABBING AT LINES AND PULLING THEM OFF CONFUSING THEM WITH JEWELRY. IV TO LEFT HAND REMOVED AFTER BEING CONFUSED BRACELETS . TELESITTER PLACED IN ROOM. RN BEDSIDE SWALLOW EVALUATION PREFORM, PATIENT PASSED. MD MADE AWARE. REPOSITIONED Q2HR, BATHED, ROUTINE ORAL CARE PREFORMED, PATIENT AND FAMILY UPDATED ON CURRENT HEALTH STATUS AND MEDICATIONS.
[2022-08-08] VITALS (22 sets, daily range): BP systolic 100–145; BP diastolic 63–106; PULSE 72–173; RESP 13–18; TEMP 36.1–37.4; O2SAT 93–100; BMI 38.2
[2022-08-08] MEDS: dexmedeTOMIDidine HCL/NS 400 MCG/100 ML INFUS..BTL 44.89 MCG IVCONT ×4 (01:10→08:00)
[2022-08-08] MEDS: Heparin Sodium,Porcine 5,000 UNIT/ML VIAL 5000 UNIT SUBCUT ×2 (03:21→11:47)
[2022-08-08 05:10] LABS: VBG Base Excess 5.6 mmol/L; VBG HCO3 30 mmol/L (22-26); VBG pCO2 44 mmHg; VBG pH 7.44 (7.32-7.43); VBG pO2 60 mmHg
[2022-08-08 06:03] LABS: MANUAL DIFF FLAG NO
[2022-08-08 06:23] LABS: Albumin Level 3.3 g/dL (3.5-5.0); Anion Gap 16 (12-20); Blood Urea Nitrogen 4 mg/dL (9-16); Calcium 8.3 mg/dL (8.4-10.2); Carbon Dioxide 24 mmol/L (22-29); Chloride 103 mmol/L (96-108); Estimated Glomerular Filt Rate > 60; Glucose Random 113 mg/dL (60-115); Magnesium 1.7 mg/dL (1.6-2.6); Phosphorus 2.6 mg/dL (2.7-4.5); Potassium 4.3 mmol/L (3.3-5.1); Sodium 139 mmol/L (135-145)
[2022-08-08 06:49] LABS: Basophils Absolute Auto 0.1 X10*3/uL (0.0-0.2); Basophils Percent Auto 1.1 % (0-2); Eosinophils Absolute Auto 0.3 X10*3/uL (0.0-0.4); Eosinophils Percent Auto 5.1 % (0-4); Hematocrit 41.8 % (42.0-52.0); Hemoglobin 14.3 g/dl (14.0-18.0); Imm Gran Abs Auto 0.12 X10*3/uL (0.00-0.03); Imm Gran Pct Auto 1.9 % (0.0-0.4); Lymphocytes Absolute Auto 1.5 X10*3/uL (1.2-4.9); Lymphocytes Percent Auto 22.9 % (20-40); Mean Corpuscular HGB Conc 34.2 g/dl (31.0-36.0); Mean Corpuscular Hemoglobin 32.6 pg (27.0-33.0); Mean Corpuscular Volume 95.4 fL (80.0-98.0); Mean Platelet Volume 10.7 fL (9.4-12.4); Monocytes Absolute Auto 0.8 X10*3/uL (0.1-1.2); Monocytes Percent Auto 12.5 % (2-11); Neutrophils Absolute Auto 3.7 x10*3/uL (2.0-8.3); Neutrophils Percent Auto 56.5 % (45-73); Platelet Count 161 X10*3/uL (160-400); Red Blood Count 4.38 X10*6/uL (4.60-5.80); Red Cell Distribution Width 13.5 % (11.0-16.0); White Blood Count 6.5 X10*3/uL (4.8-10.8)
[2022-08-08] MEDS: Potassium Phosphate/NS 15 MMOL/250 ML PLAST..BAG 62.5 MMOL IV (08:45)
[2022-08-08] MEDS: Magnesium Sulfate/H2O 2 GM/50 ML PIGGYBACK IV (08:45)
[2022-08-08 08:49] LABS: Venous Blood Gas Refer to POC result
[2022-08-08] MEDS: lamoTRIgine 25 MG TABLET 50 MG PO ×2 (10:17→21:06)
[2022-08-08] MEDS: Thiamine HCL 100 MG in 0.9 % Sodium Chloride 100 ML 200 MG IV (10:17)
--- NOTE | 2022-08-08 12:15 | MHC.CM.PN ---
Per ICU rounds patient ready to transfer from ICU to [facility] this afternoon. [facility] Home family assist and transport.
--- NOTE | 2022-08-08 12:57 | P.PNCC_ITS ---
Subjective Subjective Date of Service: 08/08/22 Interval History: 26-year-old gentleman with underlying history of obesity, alcoholism with prior alcohol withdrawal seizures, alcoholic hepatitis admitted on 08/02/2022 with alcohol withdrawal with escalating sedative requirements requiring transfer to intensive care unit and intubation on 08/04/2022. Extubated 08/07/2022. No events overnight. Titrated off Precedex drip. Critical Care Time (minutes): 0 Physical Exam Vital Signs: Vital Signs: Last Vital Signs Temp 97.5 F 08/08/22 11:00 Pulse 105 H 08/08/22 12:00 Resp 13 08/08/22 12:00 BP 124/74 08/08/22 11:00 Pulse Ox 94 08/08/22 12:00 O2 Del Method 08/08/22 12:00 O2 Flow Rate 2 08/08/22 08:00 FiO2 30 08/07/22 11:00 BMI result Body Mass Index 38.2 Const: General: no acute distress, alert and awake Nutritional Appearance: obese Eyes: Sclerae: sclerae normal EOM: EOMs intact bilaterally Neck: Neck: Yes no lymphadenopathy, Yes trachea midline and Yes supple Resp: Effort & Inspection: normal respiratory effort and no respiratory distress Auscultation: clear to auscultation bilaterally Cardio: Rate: regular rate Rhythm: regular rhythm Heart sounds: no ga llops, no murmurs and no rubs GI: Palpation (GI): Soft to palpation and Other GI palpation findings present ( Nontender) Auscultation: normal bowel sounds Extrem: General: Yes no pedal edema, No clubbing and No cyanosis Objective Data Labs 08/08/22 04:51 08/08/22 04:51 Labs: Laboratory Results - last 24 hr 08/08/22 08/08/22 08/08/22 04:51 04:51 05:03 WBC 6.5 RBC 4.38 L Hgb 14.3 Hct 41.8 L MCV 95.4 MCH 32.6 MCHC 34.2 RDW 13.5 Plt Count 161 MPV 10.7 Immature Gran % (Auto) 1.9 H Neut % (Auto) 56.5 Lymph % (Auto) 22.9 [place] % (Auto) 12.5 H Eos % (Auto) 5.1 H Baso % (Auto) 1.1 Lymph # (Auto) 1.5 [place] # (Auto) 0.8 Eos # (Auto) 0.3 Baso # (Auto) 0.1 Abs Immat Gran (auto) 0.12 H Absolute Neuts (auto) 3.7 Absolute Nucleated RBC 0.000 Nucleated RBC % (auto) 0.0 VBG pH 7.44 H VBG pCO2 44 VBG pO2 60 VBG HCO3 30 H VBG O2 Saturation 89.0 VBG Base Excess 5.6 Sodium 139 Potassium 4.3 Chloride 103 Carbon Dioxide 24 Anion Gap 16 BUN 4 L Creatinine 0.65 Estim Creat Clear Calc 216.0 Estimated GFR > 60 Random Glucose 113 Calcium 8.3 L Phosphorus 2.6 L Magnesium 1.7 Albumin 3.3 L Microbiology Microbiology Results: Microbiology 08/05/22 07:05 Blood - Venous Blood Culture - Preliminary No growth after 48 hours. 08/05/22 07:05 Blood - Venous Blood Culture - Preliminary No growth after 48 hours. 08/05/22 07:30 Sputum - Suctioned Gram Stain - Final 08/05/22 07:30 Sputum - Suctioned Sputum Culture - Final 08/04/22 13:52 Blood - Venous Blood Culture - Preliminary No growth after 48 hours. 08/04/22 13:55 Blood - Venous Blood Culture - Preliminary No growth after 48 hours. 08/02/22 Unknown Urine clean catch - Urine lopez top Urine Culture - Final Progress Note: A&P Assessment and plan (1) Acute respiratory failure: Status: Acute (2) Delirium tremens: Status: Acute (3) Acute metabolic encephalopathy: Status: Acute Plan Assessment: 26-year-old gentleman with underlying history of obesity, alcohol dependence, prior alcohol withdrawal seizures admitted with delirium tremens, now requiring ventilatory support. Plan: Neuro: Delirium tremens, improved, titrate off Precedex. Started on Lamictal. Cardiac: No acute issues. Pulmonary: Acute respiratory failure secondary to delirium tremens , resolved. Extubated 08/07/2022. Renal: No acute issues. Endo: No acute issues. GI: No acute issues. ID: No acute issues Heme/Onc: No acute issues. Psych: No acute issues. Miscellaneous: No acute issues. Prophylaxis: Heparin Diet: Regular Quality Stroke Does the patient have a stroke diagnosis?: No VTE Prior VTE?: No VTE Risk Level:: Medical - moderate - high VTE Device Contraindication: N/A - Device Ordered VTE Drug Contraindication: Treatment Not Tolerated
[2022-08-08] MEDS: Enoxaparin Sodium 40 MG/0.4 ML SYRINGE SUBCUT (21:06)
--- NOTE | 2022-08-08 22:57 | PC.NURSE ---
Heart rate up to 173 with ambulation to the bathroom , pt reported he feels some palpitation , stated that he feels some sob when comes back from the bathroom to his bed 20 feet distance.Heart rate 110's at rest . Dr Lieberman notified via [employer] text
[2022-08-09] VITALS: BP 142/84; PULSE 112; RESP 16; TEMP 37.4; O2SAT 94
[2022-08-09] MEDS: Magnesium Hydrox/Alum Hydrox 30 ML ORAL.SUSP 15 ML PO (00:47)
[2022-08-09] MEDS: Omeprazole 20 MG CAPSULE.DR PO (00:47)
[2022-08-09 04:00] VITALS: BP 154/85; PULSE 105; RESP 18; TEMP 37.6; O2SAT 95
[2022-08-09 06:00] VITALS: BMI 37.3
[2022-08-09 06:33] LABS: MANUAL DIFF FLAG NO
[2022-08-09 06:39] LABS: Basophils Absolute Auto 0.1 X10*3/uL (0.0-0.2); Basophils Percent Auto 1.2 % (0-2); Eosinophils Absolute Auto 0.2 X10*3/uL (0.0-0.4); Eosinophils Percent Auto 2.8 % (0-4); Hematocrit 40.4 % (42.0-52.0); Hemoglobin 13.5 g/dl (14.0-18.0); Imm Gran Abs Auto 0.14 X10*3/uL (0.00-0.03); Imm Gran Pct Auto 1.9 % (0.0-0.4); Lymphocytes Absolute Auto 1.2 X10*3/uL (1.2-4.9); Lymphocytes Percent Auto 16.3 % (20-40); Mean Corpuscular HGB Conc 33.4 g/dl (31.0-36.0); Mean Corpuscular Hemoglobin 31.5 pg (27.0-33.0); Mean Corpuscular Volume 94.4 fL (80.0-98.0); Mean Platelet Volume 10.2 fL (9.4-12.4); Monocytes Absolute Auto 0.9 X10*3/uL (0.1-1.2); Monocytes Percent Auto 12.1 % (2-11); Neutrophils Absolute Auto 4.8 x10*3/uL (2.0-8.3); Neutrophils Percent Auto 65.7 % (45-73); Platelet Count 245 X10*3/uL (160-400); Red Blood Count 4.28 X10*6/uL (4.60-5.80); Red Cell Distribution Width 13.8 % (11.0-16.0); White Blood Count 7.3 X10*3/uL (4.8-10.8)
[2022-08-09 07:24] VITALS: BP 131/71; PULSE 95; RESP 12; TEMP 36.9; O2SAT 94
[2022-08-09 07:51] LABS: Albumin Level 3.4 g/dL (3.5-5.0); Anion Gap 18 (12-20); Blood Urea Nitrogen 6 mg/dL (9-16); Calcium 8.4 mg/dL (8.4-10.2); Carbon Dioxide 22 mmol/L (22-29); Chloride 106 mmol/L (96-108); Creatinine Clr Calc Pharmacy 223.3; Estimated Glomerular Filt Rate > 60; Glucose Random 113 mg/dL (60-115); Phosphorus 3.8 mg/dL (2.7-4.5); Potassium 3.8 mmol/L (3.3-5.1); Sodium 142 mmol/L (135-145)
[2022-08-09] MEDS: lamoTRIgine 25 MG TABLET 50 MG PO (09:22)
[2022-08-09] MEDS: Thiamine HCL 100 MG in 0.9 % Sodium Chloride 100 ML 200 MG IV (09:24)
[2022-08-09] MEDS: Metoprolol Succinate ER 50 MG TAB.ER.24H PO (11:20)
[2022-08-09 11:36] VITALS: PULSE 138; O2SAT 98
[2022-08-09 11:41] VITALS: BP 142/69; PULSE 114; RESP 16; TEMP 36.3; O2SAT 95
--- NOTE | 2022-08-09 13:09 | P.DS_ITS ---
DS: Providers Provider Date of Service: 08/09/22 Date of admission: 08/02/22 15:59 Primary care physician: ANASTASIIA Alvarado Consults: 08/03/22 07:42 Addiction Medicine Routine Consulting Provider: Addiction Covering Reason for consultation: etoh 08/04/22 05:54 Consult to Critical Care Stat Consulting Provider: Francesco Jurado Reason for consultation: alcohol withdrawal 08/05/22 08:14 Consult to Infectious Diseases Stat Consulting Provider: Sarah Vo Reason for consultation: MEROPENEM ORDER DS: Diagnosis Discharge Diagnosis (1) Acute respiratory failure: Status: Acute (2) Delirium tremens: Status: Acute (3) Acute metabolic encephalopathy: Status: Acute (4) Alcohol abuse: Status: Acute (5) Alcoholic hepatitis: Status: Acute (6) Alcohol withdrawal seizure: Status: Acute DS: Summary Hospital Course Hospital Course: The patient had prolonged hospital stay. For full details please return to the EMR. Admission note HPI 26M PMH obesity, HTN, etoh dependence with history of severe withdrawal requiring intubation, presented with witnessed seizure.? Patient reports drinking 30 nips of whiskey per day.? He reports his last drink was 3 days prior to presentation.? Patient was at [facility] and had witnessed seizure.? In ED patient noted to have signs of acute hepatitis with total bilirubin of 4.2.? Hospital course The patient was admitted primarily for treatment of alcohol withdrawal seizure and alcohol hepatitis secondary to alcohol dependence. Started on phenobarbital protocol but continued to have worsening symptoms of withdrawal requiring multiple extra doses of IM Zyprexa and Haldol with no significant improvement. He was transferred to the ICU and intubated on 08/04/2022 at that point for evidence of delirium tremens. Controlled with IV propofol that was changed to IV Precedex as he was waken up and extubated 08/07/2022. CT scan was consistent with acute pancreatitis with evidence of hepatomegaly. Treated with IV fluid. Diet was advanced gradually as the patient regained consciousness after extubation. Tolerated regular diet well. The patient was able to participate with physical therapy and did overall well. Evaluated by Addiction team with recommendations for outpatient follow-up. We advise you complete abstinence from alcohol To follow-up with AA as outpatient Continue home medications as prescribed Start omeprazole as prescribed Drink plenty of fluids and advance your diet slowly over the next few days Time Spent with Patient Time attestation: Total time managing care of this patient today ____ minutes. Discharge coordination time: Greater than 30 minutes Quality: Safe Use of Opioids Does Pt have an Active Cancer Diagnosis on the Problem List?: No Quality: Stroke Does the patient have a stroke diagnosis?: No Physical Exam Vital Signs: Vital Signs: Last Vital Signs Temp 97.3 F 08/09/22 11:41 Pulse 114 H 08/09/22 11:41 Resp 16 08/09/22 11:41 BP 142/69 H 08/09/22 11:41 Pulse Ox 95 08/09/22 11:41 O2 Del Method 08/09/22 11:41 O2 Flow Rate 2 08/08/22 08:00 FiO2 30 08/07/22 11:00 BMI result Body Mass Index 37.3 Const: Other: Constitutional : Awake, interactive, obese, not in distress Neck : Normal inspection, Supple Cardiovascular : RRR, no JVP, no lower extremity edema Respiratory : good bilateral air entry, no crackles, wheezes or rhonchi Gastrointestinal: soft, lax, Normal bowel sounds, Non tender Skin : Warm, Dry Neurological : Alert & oriented x3, No focal deficit , CN 2-12 within normal DS: Data Data Completed and Pending Labs on day of discharge: Laboratory Results - last 24 hr 08/09/22 08/09/22 06:07 06:07 WBC 7.3 RBC 4.28 L Hgb 13.5 L Hct 40.4 L MCV 94.4 MCH 31.5 MCHC 33.4 RDW 13.8 Plt Count 245 D MPV 10.2 Immature Gran % (Auto) 1.9 H Neut % (Auto) 65.7 Lymph % (Auto) 16.3 L Floyd % (Auto) 12.1 H Eos % (Auto) 2.8 Baso % (Auto) 1.2 Lymph # (Auto) 1.2 Floyd # (Auto) 0.9 Eos # (Auto) 0.2 Baso # (Auto) 0.1 Abs Immat Gran (auto) 0.14 H Absolute Neuts (auto) 4.8 Absolute Nucleated RBC 0.000 Nucleated RBC % (auto) 0.0 Sodium 142 Potassium 3.8 Chloride 106 Carbon Dioxide 22 Anion Gap 18 BUN 6 L Creatinine 0.62 Estim Creat Clear Calc 223.3 Estimated GFR > 60 Random Glucose 113 Calcium 8.4 Phosphorus 3.8 Magnesium 2.0 Albumin 3.4 L Preliminary micro results at discharge 08/05/22 07:05 Blood Culture - Preliminary Blood - Venous No growth after 48 hours. 08/05/22 07:05 Blood Culture - Preliminary Blood - Venous No growth after 48 hours. 08/04/22 13:52 Blood Culture - Preliminary Blood - Venous No growth after 48 hours. 08/04/22 13:55 Blood Culture - Preliminary Blood - Venous No growth after 48 hours. Imaging Chest x-ray: Radiologist's impression: ITS Impressions Head CT 08/02/22 14:33 IMPRESSION: 1. No acute intracranial pathology. 2. Paranasal sinus inflammatory changes. Abdomen Ultrasound 08/02/22 16:19 IMPRESSION: Hepatic steatosis and possible cirrhosis without focal abnormality. Cholelithiasis without evidence for acute cholecystitis. Chest X-Ray 08/04/22 07:21 IMPRESSION: Support tubes and catheters in place. Cardiomegaly without pulmonary edema. Chest X-Ray 08/05/22 08:11 IMPRESSION: Endotracheal tube tip somewhat low approximately 1.5 cm above the barbie. Increase in left lower lobe retrocardiac disease. This critical result was discussed with Dr. Jurado at 8:30 AM on August 05, 2022 and it was ascertained that the content and urgency of the report was understood at the time of direct communication. Abdomen/Pelvis CT 08/05/22 10:53 IMPRESSION: No evidence of ascites or intestinal obstruction. Mild induration of fat about the uncinate process and head of the pancreas, suspicious for acute pancreatitis. No discrete collection identified. Bibasilar dependent airspace disease suggesting infiltrates and/or atelectasis. Hepatosplenomegaly. Diffusely heterogeneous hepatic parenchymal density, nonspecific. Differential diagnosis includes, but isn't limited to, hepatitis. Recommend clinical correlation. If further imaging is clinically desired, MRI may be of use. Additional findings, as above. Discharge Plan Discharge Anticipated Discharge Date/Time: 08/09/22 12:48 Patient Disposition: Home, Self-Care Discharge Diagnosis: Alcohol withdrawal with delirium tremens and seizures Alcoholic hepatitis Referrals: Claritza August, ANP [Primary Care Provider] - 1 Week Discharge Medications: New omeprazole 20 mg capsule,delayed release(DR/EC) 20 mg PO DAILY Qty: 30 0RF Continued amlodipine 2.5 mg tablet 2.5 mg PO DAILY melatonin 3 mg tablet 3 mg PO BEDTIME lisinopril 10 mg tablet 10 mg PO DAILY hydroxyzine HCl 25 mg tablet 25 mg PO TID PRN (Reason: Anxiety) metoprolol succinate 25 mg tablet extended release 24 hr 25 mg PO DAILY quetiapine 50 mg tablet 50 mg PO BEDTIME Vivitrol 380 mg suspension,extended rel recon 380 mg IM Q28D trazodone 50 mg tablet 50 mg PO BEDTIME thiamine HCl (vitamin B1) 100 mg Tablet 100 mg PO DAILY folic acid 1 mg tablet 1 mg PO DAILY Discharge Orders: Discharge Order (Routine); Ordered 08/09/22 Ordered By: Horace Mayfield Diet: Advance to usual diet Activity on Discharge: As tolerated Stand Alone Forms: Patient Portal Discharge page, Work/School Release Care Plan Goals: Read below Health Concerns: Read below Plan of Treatment: Read below Assessment: You were admitted to the hospital for evaluation of seizure. Found to be in severe alcohol withdrawal with seizures requiring ICU admission and placement on breathing support until withdrawal resolved. Treated with Precedex, phenobarbital with resolution of symptoms over the course of hospital stay. Evaluated by Addiction team with agreement for outpatient resources follow-up. We advise you complete abstinence from alcohol To follow-up with AA as outpatient Continue home medications as prescribed Start omeprazole as prescribed Drink plenty of fluids and advance your diet slowly over the next few days Discharge Date/Time: 08/09/22 14:41
--- NOTE | 2022-08-09 13:09 | MHC.CM.PN ---
Male 26 DX ETOH Hepatitis and Withdrawal S/P ICU ext 08/07. PT eval indicates that there is no need for therapy. Patient is discharged to home self-care. He has arranged for his uncle to provide transportation home to [facility], later this afternoon.
== END 2022-08-09 14:41 | disposition home or self-care (01) | DRG 280 ==
LOC: HO.ED 14:35 → HO.EDOVER 16:06 → HO.IMC 16:48 → HO.ICU 08-04 07:47 → HO.IMC 08-08 12:55
PROVIDERS: Family Medicine; Internal Medicine Cardiovascular Disease; Internal Medicine Pulmonary Disease; Nurse Practitioner Family; Admitting Provider Internal Medicine; Emergency Provider Emergency Medicine; PCP Nurse Practitioner Adult Health; Visit Provider Student in an Organized Health Care Education/Training Program
DX: K70.10 Alcoholic hepatitis without ascites (principal); J96.00 Acute respiratory failure, unspecified whether with hypoxia or hypercapnia; G93.41 Metabolic encephalopathy; F10.231 Alcohol dependence with withdrawal delirium; K65.2 Spontaneous bacterial peritonitis; D68.4 Acquired coagulation factor deficiency; E87.20 Acidosis, unspecified; I10 Essential (primary) hypertension; R56.9 Unspecified convulsions; E66.01 Morbid (severe) obesity due to excess calories; Z68.37 Body mass index [BMI] 37.0-37.9, adult; Z20.822 Contact with and (suspected) exposure to COVID-19; Z79.899 Other long term (current) drug therapy
CPT/HCPCS: 36415; 70450; 71045; 74176; 76700; 80048; 80053; 80076; 80202; 80307; 81001; 82040; 82077; 82140; 82607; 82746; 82803; 83605; 83615; 83690; 83735; 84100; 84145; 85025; 85027; 85610; 87040; 87070; 87086; 87205; 87635; 92950; 93005; 94002; 94003; 94799; 97161; 99285; C1758; J0696; J1643; J1650; J2060; J2185; J2250; J2251; J2560; J3370; J3371; J3411; J3475